=== PATIENT | female | born 1980 | race Caucasian/White ===

== ENCOUNTER → 2018-04-14 14:52 | Outpatient (CLI) | payer MEDICAID, SELFPAY ==
--- NOTE | 2018-04-14 14:55 | BI_ITS ---
MAMMOGRAPHY - BILATERAL SCREENING REASON FOR EXAM: Female, 38 years old. Routine annual screening examination. PERTINENT HISTORY: Non-contributory. TECHNIQUE: Digital bilateral breast cynthia (3D mammographic acquisition) in the CC and MLO projections. 2-D mediolateral oblique (MLO) and craniocaudad (CC) views of both breasts were obtained. CAD: Full Field Digital Mammography with Computer Added Detection was performed. COMPARISON: Comparison is made with prior outside examination dated November 30, 2013. FINDINGS: Breast Composition: There are scattered areas of fibroglandular density. There are no dominant masses or suspicious calcifications. No other significant abnormalities are identified. There has been no significant change since the prior study. BI/SCREENING MAMM (CAD), BILAT IMPRESSION: Stable bilateral screening mammogram. Yearly follow-up mammogram recommended. (A) ASSESSMENT CATEGORY: BIRADS Category 1: Negative. A letter regarding these results will be sent to the patient by the facility within 30 days. Approximately 10% of breast cancers are not detected by mammography. A normal mammogram should not delay biopsy of a clinically suspicious abnormality. [id number] Electronically Signed: Lisandro Mackey MD at 12:56 EDT Tel [phone], Service support ,
== END ==
PROVIDERS: PCP Nurse Practitioner Family
DX: Z12.31 Encounter for screening mammogram for malignant neoplasm of breast (principal)
CPT/HCPCS: 77063; 77067

== ENCOUNTER → 2018-05-08 15:34 | Outpatient (CLI) | payer MEDICAID, SELFPAY ==
--- NOTE | 2018-05-08 15:38 | EKG12_ITS ---
Test Reason : CARDIAC ARRHYTHMIA Blood Pressure : / mmHG Vent. Rate : 075 BPM Atrial Rate : 075 BPM P-R Int : 154 ms QRS Dur : 088 ms QT Int : 392 ms P-R-T Axes : 044 -27 023 degrees QTc Int : 437 ms Normal sinus rhythm Minimal voltage criteria for LVH, may be normal variant Cannot rule out Anterior infarct , age undetermined Abnormal ECG Reconfirmed by COCO LEIJA, KELSEY ([id number]), manuscript editor MARIA R GREEN ([id number]) on 05/12/2018 2:02:04 PM Referred By: [facility] Confirmed By:KELSEY SEPULVEDA MD
== END ==
DX: I49.9 Cardiac arrhythmia, unspecified (principal)
CPT/HCPCS: 93005

== ENCOUNTER → 2018-06-17 06:51 | Outpatient (CLI) | payer MEDICAID, SELFPAY ==
--- NOTE | 2018-06-17 12:52 | STRESSREP ---
Stress Test Report Date: 06/17/2018 Procedure: Exercise tolerance test/imaging study Indications: Chest pain Consent: Per the patient Procedure: The patient exercised on a Anders protocol for 6 minutes completing Stage 2 achieving a peak heart rate of 169 bpm (93 % predicted maximal heart rate) with a peak blood pressure 220/80 mmHg and a peak MET capacity of 7 METs. The baseline ECG demonstrated normal sinus rhythm. The peak exercise ECG demonstrated no obvious ECG changes. There were no cardiac dysrhythmias pretest, during exercise, or recovery. The functional capacity was considered average. There was no complaint of chest discomfort during exercise or recovery. The examination was discontinued secondary to dyspnea. Impression: 1. Technically adequate (percent predicted maximal heart rate greater than 85%) exercise tolerance test 2. Peak exercise ECG with no obvious ECG changes 3. There were no cardiac dysrhythmias pretest, during exercise, or recovery. 4. Nuclear images pending Myocardial perfusion imaging study: Technique: The patient was injected with 14.8 mCi of technetium 99m Cardiolite and subsequently rest SPECT Cardiolite nuclear imaging was obtained in the horizontal long, vertical long, and short axis views. The patient exercised on a Anders protocol for 6 minutes completing Stage 2 achieving a peak heart rate of 169 bpm (93 % predicted maximal heart rate) with a peak blood pressure 220/80 mmHg and a peak MET capacity of 7 METs. The patient was injected with 45 mCi of technetium 99m Cardiolite and subsequently stress SPECT Cardiolite nuclear imaging was obtained in the horizontal long, vertical long, and short axis views. A gated Cardiolite study at peak stress was obtained. Interpretation: Rest and stress SPECT Cardiolite nuclear imaging status post realignment and normalization demonstrates the appearance of relative uniform tracer uptake and myocardial perfusion appearing within normal limits. There is end systolic thickening and brightening. The gated Cardiolite study demonstrates myocardial thickening and inward wall motion. The reported LVEF is 63 %. Impression: 1. Rest and stress SPECT Cardiolite nuclear imaging demonstrate relative uniform tracer uptake and myocardial perfusion appearing within normal limits. 2. The gated Cardiolite study reports an LVEF of 63 %. This note was generated with [employer] It [employer] software. It may contain incorrect words, spelling, and punctuation that were not noted in checking the note before signing.
== END ==
PROVIDERS: Visit Provider Nurse Practitioner Family
DX: R07.89 Other chest pain (principal); I10 Essential (primary) hypertension; E78.5 Hyperlipidemia, unspecified; E66.9 Obesity, unspecified
CPT/HCPCS: 78452; 93017; A9500; A4216

== ENCOUNTER → 2018-06-23 17:25 | Outpatient (CLI) | payer MEDICAID, SELFPAY | PROVIDERS: Visit Provider Nurse Practitioner Family | DX: R94.31 Abnormal electrocardiogram [ECG] [EKG] (principal) | CPT/HCPCS: 71260; Q9967 ==

== ENCOUNTER → 2018-07-14 13:59 | Outpatient (CLI) | payer MEDICAID, SELFPAY ==
--- NOTE | 2018-07-14 14:01 | ECHOD_ITS ---
Reason For Study: Abnormal EKG Procedure This was a 2D Doppler, Color Flow transthoracic echocardiogram. Exam performed in department. Left Ventricle Normal LV size. Left ventricular systolic function is normal. The estimated ejection fraction is 60 %. No evidence for diastolic dysfunction. No regional wall motion abnormalities noted. Right Ventricle Normal RV size. Normal systolic function. Atria Normal left atrium. The right atrium is mildly enlarged. Mitral Valve Normal mitral valve. Tricuspid Valve Normal tricuspid valve. Mild (1+) tricuspid valve insufficiency. Pulmonary artery systolic pressure is 40 mmHg. Aortic Valve Normal aortic valve. Pulmonic Valve Normal pulmonic valve. Great Vessels Normal aortic root. The pulmonary artery is normal size. Normal inferior vena cava. Pericardium/Pleural No pericardial effusion. MMode/2D Measurements & Calculations LVIDd: 5.7 cm IVSd: 0.97 cm Ao root diam: 3.5 cm LVIDs: 3.9 cm LVPWd: 1.1 cm LA dimension: 3.9 cm RVDd: 4.4 cm FS: 31.6 % LAV(MOD-bp): 49.2 ml LA A4 area: 19.6 cm2 RA A4 area: 23.9 cm2 LAV(MOD-bp) Indexed: 18.4 ml/m2 LAV(MOD-sp2): 47.5 ml LAV(MOD-sp4): 52.8 ml Time Measurements MV dec time: 0.20 sec Doppler Measurements & Calculations MV E max david: 100.9 cm/sec Lat Peak E' David: 20.5 cm/sec Med Peak E' David: 11.4 cm/sec MV A max david: 85.4 cm/sec E/E' lat: 4.9 E/E' med: 8.8 MV E/A: 1.2 MV V2 max: 110.7 cm/sec MV P1/2t max david: 110.7 cm/sec Ao V2 max: 144.2 cm/sec MV max P.9 mmHg MV P1/2t: 89.0 msec Ao max P.3 mmHg MV V2 mean: 61.9 cm/sec MV dec slope: 364.4 cm/sec2 Ao V2 mean: 90.3 cm/sec MV mean P.8 mmHg MVA(P1/2t): 2.5 cm2 Ao mean P.8 mmHg MV V2 VTI: 33.5 cm Ao V2 VTI: 28.5 cm LV V1 max: 121.2 cm/sec PA V2 max: 95.3 cm/sec TR max david: 299.1 cm/sec LV V1 max P.9 mmHg TR max P.8 mmHg LV V1 mean P.7 mmHg LV V1 mean: 74.4 cm/sec LV V1 VTI: 26.6 cm Interpretation Summary Normal LV size. Left ventricular systolic function is normal. The estimated ejection fraction is 60 %. No evidence for diastolic dysfunction. The right atrium is mildly enlarged. Mild (1+) tricuspid valve insufficiency. Pulmonary artery systolic pressure is 40 mmHg. Ordering Physician: Jocelyn Ireland Referring Physician: [facility] Performed By: Pino Arroyo RCS
== END ==
PROVIDERS: Visit Provider Nurse Practitioner Family
DX: R94.31 Abnormal electrocardiogram [ECG] [EKG] (principal)
CPT/HCPCS: 93306

== ENCOUNTER → 2018-08-14 12:29 | Outpatient (CLI) | payer MEDICAID, SELFPAY ==
[2018-08-14 13:57] LABS: Rheumatoid Factor < 10.0 IU/mL (<15)
[2018-08-15 16:21] LABS: ANTINUCLEAR ANTIBODIES DIRECT Negative (Negative)
[2018-08-16 04:09] LABS: Cytoplasmic Ab (C-ANCA) <1:20 titer (Neg:<1:20)
[2018-08-16 08:30] LABS: CCP IgG Antibodies 10 units (0-19); Perinuclear Ab (P-ANCA) <1:20 titer (Neg:<1:20)
== END ==
PROVIDERS: Referring Provider Internal Medicine Critical Care Medicine; Visit Provider Internal Medicine Critical Care Medicine
DX: I27.20 Pulmonary hypertension, unspecified (principal)
CPT/HCPCS: 36415; 86038; 86200; 86225; 86235; 86256; 86431

== ENCOUNTER → 2018-08-18 10:53 | Outpatient (CLI) | payer MEDICAID, SELFPAY ==
[2018-08-18 11:17] VITALS: PULSE 108; PULSE 109; PULSE 111; PULSE 115; PULSE 82; PULSE 85; O2SAT 94; O2SAT 95; O2SAT 96; O2SAT 98
--- NOTE | 2018-08-18 16:03 | PCM.PSN.6M ---
PSN 6 Minute Walk Test - 6 Minute Walk Test 6 Minute Walk Test: 6 Minute Walk Test PSN:6-Minute Walk Test Start: 08/18/18 11:16 Freq: Status: Active Protocol: [id number].[id number] Document 08/18/18 11:17 SMB (Rec: 08/18/18 11:19 SMB [id number]) 6 Minute Walk Test Date Performed 08/18/18 Time Performed 11:05 Height 5 ft 10 in Weight: 163.293 kg Weight in Pounds 360.[address]: Mark Woodson Assistive device used: None Pre-test Oxygen Delivery Method Room Air Pulse Ox (%) 98 Pulse Rate (60-100 beats/min) 82 Dyspnea Mariel Scale (0-10) 0.5 Exertion Mariel Scale (6-20) 11 1st minute Oxygen Delivery Method Room Air Pulse Ox (%) 94 Pulse Rate (60-100 beats/min) 111 H 2nd minute Oxygen Delivery Method Room Air Pulse Ox (%) 95 Pulse Rate (60-100 beats/min) 111 H 3rd minute Oxygen Delivery Method Room Air Pulse Ox (%) 94 Pulse Rate (60-100 beats/min) 109 H 4th minute Oxygen Delivery Method Room Air Pulse Ox (%) 96 Pulse Rate (60-100 beats/min) 108 H 5th minute Oxygen Delivery Method Room Air Pulse Ox (%) 94 Pulse Rate (60-100 beats/min) 115 H 6th minute Oxygen Delivery Method Room Air Pulse Ox (%) 96 Pulse Rate (60-100 beats/min) 109 H Post-test Oxygen Delivery Method Room Air Pulse Ox (%) 98 Pulse Rate (60-100 beats/min) 85 Dyspnea Mariel Scale (0-10) 2 Exertion Mariel Scale (6-20) 14 Full Laps Walked 24 Partial Lap, Number of Tiles Walked 30 Total Distance Walked (ft) 1446 - Interpretation Interpretation: The patient was able to ambulate 1446 feet over the course of 6 minutes on room air with no assistive devices or breaks. The patient did experience significant desaturation from a resting value of 98%, to as low as 94% with ambulation. Patient's peak heart rate was noted at 115 bpm. These findings are consistent with deconditioning. - Recommendations Recommendations: No supplemental oxygen is indicated at this time.
== END ==
PROVIDERS: Referring Provider Internal Medicine Critical Care Medicine; Visit Provider Internal Medicine Critical Care Medicine
DX: I27.20 Pulmonary hypertension, unspecified (principal)
CPT/HCPCS: 94618

== ENCOUNTER → 2018-09-05 20:17 | Outpatient (CLI) | payer MEDICAID, SELFPAY | PROVIDERS: PCP Nurse Practitioner Family; Visit Provider Internal Medicine Critical Care Medicine | DX: G47.10 Hypersomnia, unspecified (principal) | CPT/HCPCS: 95810 ==

== ENCOUNTER → 2018-10-17 22:29 | Outpatient (CLI) | payer MEDICAID, SELFPAY ==
[2018-09-25 09:56] VITALS: BMI 52.4
== END ==
PROVIDERS: Referring Provider Nurse Practitioner Family; Visit Provider Nurse Practitioner Acute Care
DX: G47.33 Obstructive sleep apnea (adult) (pediatric) (principal)
CPT/HCPCS: 95811

== ENCOUNTER → 2019-07-27 10:49 | Outpatient (CLI) | payer MEDICAID, SELFPAY ==
[2019-03-24 09:18] VITALS: BMI 54.1
--- NOTE | 2019-07-27 10:51 | BI_ITS ---
MAMMOGRAPHY - BILATERAL SCREENING REASON FOR EXAM: Female, 39 years old. Routine annual screening examination. PERTINENT HISTORY: Aunt with breast cancer. TECHNIQUE: Digital bilateral breast tray (3D mammographic acquisition) in the CC and MLO projections. 2-D mediolateral oblique (MLO) and craniocaudad (CC) views of both breasts were obtained. CAD: Full Field Digital Mammography with Computer Added Detection was performed. COMPARISON: Comparison is made with prior study dated April 14, 2018. FINDINGS: Breast Composition: There are scattered areas of fibroglandular density. There are no dominant masses or suspicious calcifications. Small benign-appearing bilateral axillary lymph nodes. No other significant abnormalities are identified. There has been no significant change since the prior study. BI/SCREEN MAMM (CAD) W/TRAY BILAT IMPRESSION: Stable bilateral screening mammogram. Yearly follow-up mammogram recommended. (A) ASSESSMENT CATEGORY: BIRADS Category 2: Benign. A letter regarding these results will be sent to the patient by the facility within 30 days. Approximately 10% of breast cancers are not detected by mammography. A normal mammogram should not delay biopsy of a clinically suspicious abnormality. [id number] Electronically Signed: Lisandro Mackey, at 13:00 EDT , Service support ,
== END ==
DX: Z12.31 Encounter for screening mammogram for malignant neoplasm of breast (principal); Z80.3 Family history of malignant neoplasm of breast
CPT/HCPCS: 77063; 77067

== ENCOUNTER → 2020-01-01 16:35 | Outpatient (CLI) | payer OTHER, SELFPAY ==
[2020-01-01 16:37] VITALS: BMI 50.1
[2020-01-01 17:18] LABS: Absolute Lymphocyte Count 2.61 X10^3/uL (0.83-4.51); Absolute Neutrophil Count 4.8 X10^3/uL (2.0-7.7); Basophil# 0.04 X10^3/uL; Basophil% 0.5 % (0-1); Eosinophil# 0.07 X10^3/uL; Eosinophils% 0.9 % (0-5); Hematocrit 43.2 % (37-47); Lymphocyte # 2.61 X10^3/ul (4.0); Lymphocyte % 32.1 % (19-41); Mean Corp Hgb Conc 32.4 g/dL (32-36); Mean Corpuscular Hgb 29.5 pg (27.0-32.0); Mean Corpuscular Volume 91.1 fL (81-99); Mean Platelet Vol. 9.4 fl (6.2-12.0); Monocyte# 0.58 X10^3/uL; Monocyte% 7.1 % (0-10); NRBC Flagged by Analyzer 0 % (0-5); Neutrophil # 4.82 X10^3/uL (2.7-7.7); Neutrophil % 59.2 % (47-70); Platelet Count 389 K/mm3 (150-450); RBC Distribution Width CV 13.7 % (11.6-14.6); RBC Distribution Width SD 46.5 fl (35.1-43.9); Red Blood Count 4.74 M/mm3 (4.2-5.4); White Blood Count 8.1 K/mm3 (4.4-11.0)
[2020-01-01 17:44] LABS: ALB/GLOB Ratio 0.9 RATIO (0.9-2.4); AST(SGOT) 22 U/L (15-37); Alanine Aminotransfer ALT/SGPT 28 U/L (13-56); Albumin, Serum 3.6 g/dL (3.2-5.0); Alkaline Phosphatase 76 U/L (45-117); Anion Gap 6 (5-15); BUN 8 mg/dL (7-18); BUN/Creat Ratio 11.9 RATIO (10-20); Calcium,Total 8.9 mg/dL (8.5-10.1); Chloride 108 mmol/L (98-107); Creatinine, Serum 0.67 mg/dL (0.55-1.02); EST Glomerular Filtration Rate 102 mL/min (>60); Est Glom Filt Rate - Afr Amer 124 mL/min (>60); Glucose 100 mg/dL (74-106); Potassium 3.8 mmol/L (3.5-5.1); Protein, Total 7.6 g/dL (6.4-8.2); Sodium Level 139 mmol/L (136-145)
[2020-01-04 09:18] LABS: HIV - WCH Non-Reactive (Nonreactive); Hepatitis B Surface Antibody Non-Reactive; Hepatitis C Antibody Non-Reactive (Nonreactive)
== END ==
PROVIDERS: Referring Provider Physician Assistant Surgical; Visit Provider Physician Assistant Surgical
DX: T14.90XA Injury, unspecified, initial encounter (principal); W46.1XXA Contact with contaminated hypodermic needle, initial encounter; Y99.0 Civilian activity done for income or pay
CPT/HCPCS: 36415; 80053; 85025; 86703; 86706; 86803

== ENCOUNTER → 2020-06-13 | Outpatient (CLI) | payer MEDICAID, SELFPAY ==
[2020-04-18 09:54] VITALS: BMI 51.2
[2020-06-13 17:30] LABS: Prothrombin Time (Protime)PT. 12.8 SECONDS (11.7-14.9)
[2020-06-13 17:31] LABS: Partial Thromboplast Time 24.3 Seconds (24.1-36.2)
[2020-06-13 17:38] LABS: D-Dimer Quantitative (DVT/PE) 1.33 FEU/ug/m (0.27-0.49)
== END | disposition home or self-care (01) ==
LOC: LAB 17:09
PROVIDERS: Visit Provider Nurse Practitioner Family
DX: M79.661 Pain in right lower leg (principal); Z86.718 Personal history of other venous thrombosis and embolism
CPT/HCPCS: 36415; 85379; 85610; 85730

== ENCOUNTER → 2020-06-14 10:55 | Outpatient (CLI) | payer MEDICAID, SELFPAY ==
[2020-04-18 09:54] VITALS: BMI 51.2
--- NOTE | 2020-06-14 10:59 | VDLE_ITS ---
Reason For Study: Pain right leg RIGHT CFV is compressible, spontaneous, phasic, competent and demonstrates normal augmentation. FV is compressible, spontaneous, phasic, competent and demonstrates normal augmentation. POP V is compressible, spontaneous, phasic, competent and demonstrates normal augmentation. T/P Trunk is compressible. PTV is compressible. RT PerV is compressible. Acute superficial vein thrombosis is noted in the right GSV from knee-prox calf. Thrombus filled varicose veins noted in the knee and prox calf. Procedure Exam performed in department. A preliminary report was called and/or faxed to [facility]. Interpretation Summary Deep veins of the right lower extremity are patent and compressible segmentally. There is no evidence of right lower extremity deep vein thrombosis. Valvular competence appears intact within the proximal deep venous system on the right . Acute superficial thrombophlebitis is noted in the right great saphenous vein from the knee to the proximal calf. Acute superficial thrombophlebitis is noted in superficial varicosities near the right knee and proximal calf. Ordering Physician: Jocelyn Chacko Performed By: Naty Ann RVT and Student
== END ==
DX: M79.661 Pain in right lower leg (principal)
CPT/HCPCS: 93971

== ENCOUNTER → 2020-08-10 10:43 | Outpatient (CLI) | payer MEDICAID, SELFPAY ==
[2020-07-02 08:41] VITALS: BMI 50.1
--- NOTE | 2020-08-10 10:50 | BI_ITS ---
MAMMOGRAPHY - BILATERAL SCREENING REASON FOR EXAM: Female, 40 years old. Routine annual screening examination. PERTINENT HISTORY: Aunt with breast cancer. TECHNIQUE: Digital bilateral breast tray (3D mammographic acquisition) in the CC and MLO projections. 2-D mediolateral oblique (MLO) and craniocaudad (CC) views of both breasts were obtained. CAD: Full Field Digital Mammography with Computer Added Detection was performed. COMPARISON: Comparison is made with prior study dated 07/27/2019 and 04/14/2018. FINDINGS: Breast Composition: There are scattered areas of fibroglandular density. There are no dominant masses or suspicious calcifications. Stable small benign-appearing bilateral axillary lymph nodes. No other significant abnormalities are identified. There has been no significant change since the prior study. BI/SCREEN MAMM (CAD) W/TRAY BILAT IMPRESSION: Stable bilateral screening mammogram. Yearly follow-up mammogram recommended. (A) ASSESSMENT CATEGORY: BIRADS Category 2: Benign. A letter regarding these results will be sent to the patient by the facility within 30 days. Approximately 10% of breast cancers are not detected by mammography. A normal mammogram should not delay biopsy of a clinically suspicious abnormality. [id number] Electronically Signed: Lisandro Mackey, at 12:47 EDT , Service support ,
[2020-08-10 11:10] LABS: Absolute Lymphocyte Count 2.95 X10^3/uL (0.83-4.51); Absolute Neutrophil Count 4.2 X10^3/uL (2.0-7.7); Basophil# 0.04 X10^3/uL; Basophil% 0.5 % (0-1); Eosinophil# 0.15 X10^3/uL; Eosinophils% 1.9 % (0-5); Hematocrit 40.9 % (37-47); Hemoglobin 12.9 g/dL (12.0-15.0); Lymphocyte # 2.95 X10^3/ul (4.0); Lymphocyte % 36.9 % (19-41); Mean Corp Hgb Conc 31.5 g/dL (32-36); Mean Corpuscular Hgb 28.9 pg (27.0-32.0); Mean Corpuscular Volume 91.7 fL (81-99); Mean Platelet Vol. 9.1 fl (6.2-12.0); Monocyte# 0.62 X10^3/uL; Monocyte% 7.8 % (0-10); NRBC Flagged by Analyzer 0 % (0-5); Neutrophil # 4.21 X10^3/uL (2.7-7.7); Neutrophil % 52.5 % (47-70); Platelet Count 343 K/mm3 (150-450); RBC Distribution Width CV 13.8 % (11.6-14.6); RBC Distribution Width SD 46.9 fl (35.1-43.9); Red Blood Count 4.46 M/mm3 (4.2-5.4)
[2020-08-10 11:40] LABS: Hemoglobin A1c 6.4 % (3.8-5.6)
[2020-08-10 11:51] LABS: Vitamin D,25 Hydroxy 41.5 ng/mL
[2020-08-10 12:00] LABS: ALB/GLOB Ratio 0.7 RATIO (0.9-2.4); AST(SGOT) 17 U/L (15-37); Alanine Aminotransfer ALT/SGPT 25 U/L (13-56); Albumin, Serum 3.2 g/dL (3.2-5.0); Alkaline Phosphatase 78 U/L (45-117); Anion Gap 4 (5-15); BUN 11 mg/dL (7-18); BUN/Creat Ratio 15.4 RATIO (10-20); Calcium,Total 8.5 mg/dL (8.5-10.1); Chloride 104 mmol/L (98-107); Cholesterol 181 mg/dL (200); Creatinine, Serum 0.71 mg/dL (0.55-1.02); EST Glomerular Filtration Rate 95 mL/min (>60); Est Glom Filt Rate - Afr Amer 115 mL/min (>60); Globulin 4.3 g/dL (2.2-4.2); Glucose 121 mg/dL (74-106); High Density Lipoprotein 76 mg/dL; Potassium 3.6 mmol/L (3.5-5.1); Protein, Total 7.5 g/dL (6.4-8.2); Sodium Level 137 mmol/L (136-145); T4 Free Direct 1.16 ng/dL (0.76-1.46); Thyroid Stim Hormone (TSH) 2.15 uIU/mL (0.358-3.74); Triglycerides 117 mg/dL; Very Low Density Lipoprotein 23 mg/dL (5-40)
== END ==
DX: Z12.31 Encounter for screening mammogram for malignant neoplasm of breast (principal); I10 Essential (primary) hypertension; R73.03 Prediabetes; E55.9 Vitamin D deficiency, unspecified; E03.9 Hypothyroidism, unspecified; E78.2 Mixed hyperlipidemia
CPT/HCPCS: 36415; 77063; 77067; 80053; 80061; 82306; 83036; 84439; 84443; 85025

== ENCOUNTER → 2020-08-15 09:48 | Outpatient (CLI) | payer MEDICAID, SELFPAY ==
[2020-07-02 08:41] VITALS: BMI 50.1
--- NOTE | 2020-08-15 09:50 | VDLE_ITS ---
Reason For Study: Varicose veins RIGHT LEFT CFV is compressible, spontaneous, phasic, CFV is compressible, spontaneous, phasic, competent and demonstrates normal competent, and demonstrates normal augmentation. augmentation. FV is compressible, spontaneous, phasic, FV is compressible, spontaneous, phasic, competent and demonstrates normal competent and demonstrates normal augmentation. augmentation. POP V is compressible, spontaneous, phasic, POP V is compressible, spontaneous, phasic, competent and demonstrates normal competent and demonstrates normal augmentation. augmentation. T/P Trunk is compressible. T/P Trunk is compressible. PTV is compressible. PTV is compressible. RT PerV is compressible. LT PerV is compressible. SFJ is competent and measures 0.68 x 1.00 cm. SFJ is competent and measures 1.11 x 0.83 cm. GSV proximal thigh measures 0.53 cm. GSV proximal thigh measures 0.56 x 0.50 cm. GSV at knee measures 0.39 x 0.46 cm. GSV above knee is competent. GSV INCOMPETENT throughout for greater than GSV at knee measures 0.33 x 0.32 cm. 0.5 seconds. GSV below knee is INCOMPETENT for greater ASV mid calf is INCOMPETENT for greater than than 0.5 seconds. 0.5 seconds and measures 0.33 x 0.36 cm. ASV proximal calf is INCOMPETENT for greater SSV at junction is INCOMPETENT for greater than 0.5 seconds and measures 0.21 x 0.24 cm. than 0.5 seconds and measures 0.73 x 0.73 cm. SSV at junction is INCOMPETENT for greater ASV prox calf from SSV is INCOMPETENT for than 0.5 seconds and measures 0.69 x 0.75 cm. 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 medial malleolus. Vein of Giacomini is INCOMPETENT for greater ASV prox calf from SSV is INCOMPETENT for than 0.5 seconds and measures 0.58 x 0.59 cm. greater than 0.5 seconds and measures 0.50 x Procedure 0.52 cm. This is a venous duplex using B-mode, color Vein of Giacomini is INCOMPETENT for greater flow and spectral Doppler. than 0.5 seconds and measures 0.86 x 0.87 cm. Exam performed in department. A preliminary report was called and/or faxed to [facility]. Interpretation Summary Bilateral no DVT. Right GSV 5.3mm and relux. Bilaterall calf ASV and left calf GSV reflux. Bilateral large LSV junction and bilat vein o G reflux and 5.9 and 8.7mm. Ordering Physician: Darshan Solitario Referring Physician: [facility] Performed By: Naty Ann RVT
== END ==
PROVIDERS: Referring Provider Surgery Vascular Surgery; Visit Provider Surgery Vascular Surgery
DX: I83.892 Varicose veins of left lower extremity with other complications (principal); I83.891 Varicose veins of right lower extremity with other complications
CPT/HCPCS: 93970

== ENCOUNTER → 2020-11-21 09:40 | Outpatient (CLI) | payer BC, MEDICAID, SELFPAY ==
[2020-09-20 11:18] VITALS: BMI 52.8
--- NOTE | 2020-11-21 09:43 | VDLE_ITS ---
Reason For Study: Varicose veins RIGHT LEFT CFV is compressible, spontaneous, phasic, CFV is compressible, spontaneous, phasic, competent and demonstrates normal competent, and demonstrates normal augmentation. augmentation. FV is compressible, spontaneous, phasic, FV is compressible, spontaneous, phasic, competent and demonstrates normal competent and demonstrates normal augmentation. augmentation. POP V is compressible, spontaneous, phasic, POP V is compressible, spontaneous, phasic, competent and demonstrates normal competent and demonstrates normal augmentation. augmentation. T/P Trunk is compressible. T/P Trunk is compressible. PTV is compressible. PTV is compressible. RT PerV is compressible. LT PerV is compressible. GSV prox thigh is occluded s/p EVLA. SFJ is competent and measures 1.23 x 1.20 cm. Remaining GSV is compressible. GSV proximal thigh measures 0.51 x 0.47 cm. GSV below prox thigh is INCOMPETENT for GSV above knee is competent. greater than 0.5 second. GSV at knee measures 0.30 x 0.32 cm. SSV is occluded s/p EVLA. GSV below knee is INCOMPETENT for greater ASV prox calf from SSV is INCOMPETENT for than 0.5 seconds. greater than 0.5 seconds and measures 0.86 x ASV proximal calf is INCOMPETENT for greater 0.88 cm. than 0.5 seconds and measures 0.31 x 0.31 cm. Vein of Giacomini is INCOMPETENT for greater SSV is occluded s/p EVLA. than 0.5 seconds and measures 0.58 x 0.60 cm. ASV prox calf from SSV is INCOMPETENT for ASV mid calf is INCOMPETENT for greater than greater than 0.5 seconds and measures 0.40 x 0.5 seconds and measures 0.35 x 0.42 cm. 0.38 cm. Procedure Vein of Giacomini is occluded s/p EVLA. This is a venous duplex using B-mode, color flow and spectral Doppler. Exam performed in department. Interpretation Summary Bilateral no DVT. Right GSV and LSV oclcuded s/p ablation. Left LSv occluded s/p ablation. Residual branches bilateral claf and bilateral GSV in calf with reflux. Ordering Physician: Darshan Solitario Referring Physician: [facility] Performed By: Naty Ann RVT
== END ==
PROVIDERS: Referring Provider Surgery Vascular Surgery; Visit Provider Surgery Vascular Surgery
DX: I47.1 Supraventricular tachycardia (principal); I10 Essential (primary) hypertension; E07.9 Disorder of thyroid, unspecified; E78.70 Disorder of bile acid and cholesterol metabolism, unspecified; K21.9 Gastro-esophageal reflux disease without esophagitis; F32.9 Major depressive disorder, single episode, unspecified; M19.90 Unspecified osteoarthritis, unspecified site; I83.893 Varicose veins of bilateral lower extremities with other complications; Z86.718 Personal history of other venous thrombosis and embolism
CPT/HCPCS: 93970

== ENCOUNTER → 2020-12-26 09:52 | Outpatient (CLI) | payer BC, MEDICAID, SELFPAY ==
[2020-09-20 11:18] VITALS: BMI 52.8
[2020-12-09 11:42] VITALS: BMI 53.2
--- NOTE | 2020-12-26 09:53 | VDLE_ITS ---
Reason For Study: Varicose veins RIGHT LEFT CFV is compressible, spontaneous, phasic, CFV is compressible, spontaneous, phasic, competent and demonstrates normal competent, and demonstrates normal augmentation. augmentation. FV is compressible, spontaneous, phasic, FV is compressible, spontaneous, phasic, competent and demonstrates normal competent and demonstrates normal augmentation. augmentation. POP V is compressible, spontaneous, phasic, POP V is compressible, spontaneous, phasic, competent and demonstrates normal competent and demonstrates normal augmentation. augmentation. T/P Trunk is compressible. T/P Trunk is compressible. PTV is compressible. PTV is compressible. RT PerV is compressible. LT PerV is compressible. GSV prox thigh is occluded s/p EVLA. SFJ is competent and measures 1.08 x 1.03 cm. Remaining GSV is compressible. GSV below prox thigh is INCOMPETENT for GSV proximal thigh measures 0.49 x 0.50 cm. greater than 0.5 second. GSV above knee is competent. SSV is occluded s/p EVLA. GSV at knee measures 0.32 x 0.38 cm. ASV prox calf from SSV is INCOMPETENT for GSV below knee is INCOMPETENT for greater greater than 0.5 seconds and measures 0.63 x than 0.5 seconds. 0.63 cm. ASV proximal calf is INCOMPETENT for greater Vein of Giacomini is INCOMPETENT for greater than 0.5 seconds and measures 0.29 x 0.31 cm. than 0.5 seconds and measures 0.69 x 0.71 cm. ASV mid calf is INCOMPETENT for greater than SSV is occluded s/p EVLA. 0.5 seconds and measures 0.41 x 0.43 cm. ASV prox calf from SSV is INCOMPETENT for Procedure greater than 0.5 seconds and measures 0.48 x This is a venous duplex using B-mode, color 0.60 cm. flow and spectral Doppler. Vein of Giacomini is partially compressible. Exam performed in department. Vein is INCOMPETENT and measures 0.61 x 0.67 A preliminary report was called and/or faxed cm. to [facility]. 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 Interpretation Summary No DVT. Right gsv occluded form ablation and bilateral LSV occluded from ablation. Right vein of G with reflux and reflux noted in calf veins of gsv and asv. Left vein of G partially occluded. Reflux noted in calf gsv and asv. Ordering Physician: Darshan Solitario [facility]erring Physician[facility] Performed By: Naty Ann RVT
== END ==
PROVIDERS: Referring Provider Surgery Vascular Surgery; Visit Provider Surgery Vascular Surgery
DX: I83.893 Varicose veins of bilateral lower extremities with other complications (principal); I47.1 Supraventricular tachycardia; I10 Essential (primary) hypertension; E07.9 Disorder of thyroid, unspecified; E78.00 Pure hypercholesterolemia, unspecified; K21.9 Gastro-esophageal reflux disease without esophagitis; F32.9 Major depressive disorder, single episode, unspecified; M19.90 Unspecified osteoarthritis, unspecified site; Z86.718 Personal history of other venous thrombosis and embolism
CPT/HCPCS: 93970

== ENCOUNTER → 2021-04-03 13:15 | Outpatient (CLI) | payer BC, MEDICAID, SELFPAY ==
[2020-12-09 11:42] VITALS: BMI 53.2
--- NOTE | 2021-04-03 13:19 | VDLE_ITS ---
Reason For Study: embolism and thromosis of superfiscial veins RIGHT LEFT CFV is compressible, spontaneous, phasic, GSV is normal. competent and demonstrates normal CFV is compressible, spontaneous, phasic, augmentation. competent, and demonstrates normal FV is compressible, spontaneous, phasic, augmentation. competent and demonstrates normal FV is compressible, spontaneous, phasic, augmentation. competent and demonstrates normal POP V is compressible, spontaneous, phasic, augmentation. competent and demonstrates normal POP V is compressible, spontaneous, phasic, augmentation. competent and demonstrates normal T/P Trunk is compressible. augmentation. PTV is compressible. T/P Trunk is compressible. RT PerV is compressible. PTV is compressible. GSV and SSV are occluded S/P EVLA. LT PerV is compressible. Procedure SSV is occluded S/P EVLA. This is a venous duplex using B-mode, color flow and spectral Doppler. Exam performed in department. The study was technically difficult. A preliminary report was called and/or faxed to DR. Solitario @ 2:10 pm @ [phone]. VL/Venous Duplex US - Chad Extrem Interpretation Summary No DVT noted bilaterally. The right greater and lesser saphenous occluded statu s post ablation. Left lesser saphenous occluded status post ablation. Ordering Physician: Dariela Mosquera Referring Physician: [facility] Performed By: Sandie Magana, DARREL, RVT
== END ==
PROVIDERS: Referring Provider Nurse Practitioner Adult Health; Visit Provider Nurse Practitioner Adult Health
DX: I82.811 Embolism and thrombosis of superficial veins of right lower extremity (principal)
CPT/HCPCS: 93970

== ENCOUNTER → 2021-08-14 15:32 | Outpatient (CLI) | payer BC, MEDICAID, SELFPAY ==
--- NOTE | 2021-08-14 15:34 | BI_ITS ---
MAMMOGRAPHY - BILATERAL SCREENING REASON FOR EXAM: Female, 41 years old. Routine annual screening examination. PERTINENT HISTORY: Non-contributory. TECHNIQUE: Digital bilateral breast tray (3D mammographic acquisition) in the CC and MLO projections. 2-D mediolateral oblique (MLO) and craniocaudad (CC) views of both breasts were obtained. CAD: Full Field Digital Mammography with Computer Added Detection was performed. COMPARISON: Comparison is made with prior study dated 08/10/2020 and 07/27/2019. FINDINGS: Breast Composition: There are scattered areas of fibroglandular density. There are no dominant masses or suspicious calcifications. No other significant abnormalities are identified. There has been no significant change since the prior study. BI/SCRN MAMM (CAD)W/TRAY BILAT IMPRESSION: Stable bilateral screening mammogram. Yearly follow-up mammogram recommended. (A) ASSESSMENT CATEGORY: BIRADS Category 1: Negative. A letter regarding these results will be sent to the patient by the facility within 30 days. Approximately 10% of breast cancers are not detected by mammography. A normal mammogram should not delay biopsy of a clinically suspicious abnormality. [id number] Electronically Signed: Lisandro Makcey MD at 8:45 EDT , Service support ,
== END ==
PROVIDERS: Referring Provider Nurse Practitioner Adult Health; Visit Provider Nurse Practitioner Adult Health
DX: Z12.31 Encounter for screening mammogram for malignant neoplasm of breast (principal)
CPT/HCPCS: 77063; 77067

== ENCOUNTER → 2022-02-20 | Outpatient (CLI) | payer BC, MEDICAID, SELFPAY ==
[2022-02-20 10:09] LABS: Absolute Lymphocyte Count 3.82 X10^3/uL (0.83-4.51); Absolute Neutrophil Count 4.9 X10^3/uL (2.0-7.7); Basophil# 0.05 X10^3/uL; Basophil% 0.5 % (0-1); Eosinophil# 0.18 X10^3/uL; Eosinophils% 1.9 % (0-5); Hematocrit 39.5 % (37-47); Hemoglobin 13.1 g/dL (12.0-15.0); Lymphocyte # 3.82 X10^3/ul (0.83-4.51); Lymphocyte % 39.6 % (19-41); Mean Corp Hgb Conc 33.2 g/dL (32-36); Mean Corpuscular Volume 87.6 fL (81-99); Mean Platelet Vol. 9.7 fl (6.2-12.0); Monocyte# 0.69 X10^3/uL; Monocyte% 7.2 % (0-10); NRBC Flagged by Analyzer 0 % (0-5); Neutrophil # 4.86 X10^3/uL (2.7-7.7); Neutrophil % 50.4 % (47-70); Platelet Count 337 K/mm3 (150-450); RBC Distribution Width CV 14.5 % (11.6-14.6); Red Blood Count 4.51 M/mm3 (4.2-5.4); White Blood Count 9.6 K/mm3 (4.4-11.0)
[2022-02-20 10:42] LABS: Vitamin D,25 Hydroxy 47.3 ng/mL
[2022-02-20 10:49] LABS: ALB/GLOB Ratio 0.8 RATIO (0.9-2.4); AST(SGOT) 18 U/L (15-37); Alanine Aminotransfer ALT/SGPT 30 U/L (13-56); Albumin, Serum 3.2 g/dL (3.2-5.0); Alkaline Phosphatase 76 U/L (45-117); Anion Gap 4 (5-15); BUN 11 mg/dL (7-18); BUN/Creat Ratio 17.2 RATIO (10-20); Calcium,Total 8.7 mg/dL (8.5-10.1); Chloride 103 mmol/L (98-107); Cholesterol 199 mg/dL (200); Creatinine, Serum 0.64 mg/dL (0.55-1.02); EST Glomerular Filtration Rate 107 mL/min (>60); Est Glom Filt Rate - Afr Amer 130 mL/min (>60); Globulin 3.9 g/dL (2.2-4.2); Glucose 143 mg/dL (74-106); High Density Lipoprotein 78 mg/dL; Potassium 3.9 mmol/L (3.5-5.1); Protein, Total 7.1 g/dL (6.4-8.2); Sodium Level 135 mmol/L (136-145); Thyroid Stim Hormone (TSH) 1.19 uIU/mL (0.358-3.74); Triglycerides 109 mg/dL; Very Low Density Lipoprotein 22 mg/dL (5-40)
[2022-02-20 10:57] LABS: Microalbumin,Random Urine < 5.0 mg/L (NO RANGE EST.)
[2022-02-23 18:07] LABS: Vitamin D 1,25-Dihydroxy 55.1 pg/mL (19.9-79.3)
== END | disposition home or self-care (01) ==
LOC: LAB 09:25
PROVIDERS: Referring Provider Nurse Practitioner Adult Health; Visit Provider Nurse Practitioner Adult Health
DX: E11.9 Type 2 diabetes mellitus without complications (principal)
CPT/HCPCS: 36415; 80053; 80061; 82043; 82306; 82570; 82652; 84443; 85025

== ENCOUNTER → 2022-08-16 | Outpatient (CLI) | payer BC, MEDICAID, SELFPAY ==
--- NOTE | 2022-08-16 10:03 | BI_ITS ---
MAMMOGRAPHY - BILATERAL SCREENING 3-D TOMOSYNTHESIS REASON FOR EXAM: Female, 42 years old. Routine screening PERTINENT HISTORY: Aunt with breast cancer.. TECHNIQUE: 2-D mammograms and 3-D Tomosynthesis of the breast (s) were performed. CAD was performed. COMPARISON: None. FINDINGS: The breast composition is composed of scattered fibroglandular density. Scattered benign calcifications are seen. No dense spiculated masses or suspicious microcalcifications are identified. No architectural distortion is identified. There is no skin thickening or retraction. There has been no significant change since the prior study. BI/SCRN MAMM (CAD)W/TRAY BILAT IMPRESSION: No mammographic signs of malignancy. Routine yearly mammograms recommended. ASSESSMENT CATEGORY: BIRADS Category 1: Negative. A letter regarding these results will be sent to the patient by the facility within 30 days. FOLLOW UP RECOMMENDATION: Yearly follow up mammogram recommended. (A) Approximately 10% of breast cancers are not detected by mammography. A normal mammogram should not delay biopsy of a clinically suspicious abnormality. Electronically Signed: Bobby Arrington MD at 10:57 EDT ,
== END | disposition home or self-care (01) ==
LOC: OPBI 10:01
PROVIDERS: Visit Provider Family Medicine
DX: Z12.31 Encounter for screening mammogram for malignant neoplasm of breast (principal); Z80.3 Family history of malignant neoplasm of breast
CPT/HCPCS: 77063; 77067

== ENCOUNTER → 2023-03-14 | Outpatient (CLI) | payer BC, MEDICAID, SELFPAY ==
[2023-03-14 10:54] LABS: Hematocrit 42.3 % (37-47); Hemoglobin 13.2 g/dL (12.0-15.0); Mean Corp Hgb Conc 31.2 g/dL (32-36); Mean Corpuscular Hgb 29.1 pg (27.0-32.0); Mean Corpuscular Volume 93.4 fL (81-99); Platelet Count 373 K/mm3 (150-450); RBC Distribution Width CV 13.9 % (11.6-14.6); RBC Distribution Width SD 47.8 fl (35.1-43.9); Red Blood Count 4.53 M/mm3 (4.2-5.4); White Blood Count 8.7 K/mm3 (4.4-11.0)
[2023-03-14 11:33] LABS: Microalbumin,Random Urine 28.6 mg/L (NO RANGE EST.)
[2023-03-14 11:35] LABS: ALB/GLOB Ratio 0.7 RATIO (0.9-2.4); AST(SGOT) 31 U/L (15-37); Alanine Aminotransfer ALT/SGPT 43 U/L (13-56); Albumin, Serum 3.1 g/dL (3.2-5.0); Alkaline Phosphatase 78 U/L (45-117); Anion Gap 8 (5-15); BUN 9 mg/dL (7-18); BUN/Creat Ratio 13.3 RATIO (10-20); Calcium,Total 8.6 mg/dL (8.5-10.1); Chloride 102 mmol/L (98-107); Cholesterol 245 mg/dL (200); Creatinine, Serum 0.68 mg/dL (0.55-1.02); EST Glomerular Filtration Rate 100 mL/min (>60); Est Glom Filt Rate - Afr Amer 121 mL/min (>60); Globulin 4.2 g/dL (2.2-4.2); Glucose 194 mg/dL (74-106); High Density Lipoprotein 61 mg/dL; Potassium 3.8 mmol/L (3.5-5.1); Protein, Total 7.3 g/dL (6.4-8.2); Sodium Level 135 mmol/L (136-145); T4 Free Direct 1.15 ng/dL (0.76-1.46); Thyroid Stim Hormone (TSH) 3.06 uIU/mL (0.358-3.74); Triglycerides 211 mg/dL; Very Low Density Lipoprotein 42 mg/dL (5-40)
[2023-03-14 11:38] LABS: Hemoglobin A1c 8.9 % (3.8-5.6)
== END | disposition home or self-care (01) ==
LOC: LAB 09:38
PROVIDERS: Referring Provider Nurse Practitioner Family; Visit Provider Nurse Practitioner Family
DX: E11.9 Type 2 diabetes mellitus without complications (principal); E66.01 Morbid (severe) obesity due to excess calories; E03.9 Hypothyroidism, unspecified
CPT/HCPCS: 36415; 80053; 80061; 82043; 83036; 84439; 84443; 85027

== ENCOUNTER 2023-07-29 06:52 | Day surgery (SDC) | payer BC, MEDICAID, SELFPAY ==
[2023-07-29 07:21] LABS: Internal QC Validated? YES +Cl - CLEAR BKGD; Pregnancy, Urine Negative Negative; Record Kit Lot#,Urine Preg HCG0000667200
[2023-07-29 07:22] VITALS: BP 164/74; PULSE 55; RESP 18; TEMP 36.6; O2SAT 99; BMI 52.5
[2023-07-29] MEDS: Lactated Ringers 1,000 ML 15 ML IV (07:49)
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
--- NOTE | 2023-07-29 08:00 | COLBX_PTH ---
PATIENT: ROBBY JI LOC: EN U#:[id number] AGE/SX: 43/F ROOM: RE07/29/[address]: Dr. Autumn Cano MD : 1980 BED: DIS: 07/29/2023 SPEC #: [id number] RECD: 07/29/23 10:42 STATUS: PRANEETH KENNETH #: [id number] EMILY: 07/29/23 08:[address]: Autumn Cano DEPT: SURGICAL PATHOLOGY RECD BY: Solo Helton ENTERED: 07/29/23 14:01 SP TYPE: COLON BX OTHR DR: Tianna [facility] Tissues: A - Gastric mucous membrane B - Gastric mucous membrane Procedures: Special Stain Group II Surgery Specimen Level IV Alcian Blue/PAS (control) HEADER OPERATION: Colonoscopy, EGD with biopsies PRE-OP DIAGNOSIS: Screening, GERD TISSUE SUBMITTED: A - Antrum biopsy for H. pylori and path, B - Gastroesophageal junction biopsy MICROSCOPIC DIAGNOSIS A. Gastric antrum, biopsy: Chronic gastritis. See comment. B. Gastroesophageal junction, biopsy: Focal changes of reflux. No evidence of goblet cell metaplasia. See comment. AM:eddie 07/30/2023 COMMENT A. The results of immunohistochemistry for Helicobacter pylori will be reported separately ([id number]). B. Alcian blue/PAS stain with matched control supports the above diagnosis. MICROSCOPIC DESCRIPTION Slides are reviewed. GROSS DESCRIPTION A - Received in fixative is one container labeled with the patient's name and designated antrum biopsy. The specimen consists of one irregular fragment of light aguirre soft tissue that measures 0.4 x 0.2 x 0.1 cm. The specimen is totally submitted in one cassette. B - Received in fixative is one container labeled with the patient's name and designated GE junction biopsy. The specimen consists of two irregular fragments of light aguirre soft tissue that in aggregate measure 0.4 x 0.2 x 0.1 cm. The specimen is totally submitted in one cassette. / VIANCA:eddie 07/29/2023 TC:3 CPT: 01754 x2, 61349
--- NOTE | 2023-07-29 08:00 | IMM_PTH ---
PATIENT: ROBBY JI LOC: EN U#:[id number] AGE/SX: 43/F ROOM: RE07/29/[address]: Dr. Autumn Cano MD : 1980 BED: DIS: 07/29/2023 SPEC #: [id number] RECD: 07/29/23 14:49 STATUS: PRANEETH REGuido #: [id number] EMILY: 07/29/23 08:[address]: Autumn Cano DEPT: IMMUNOHISTOCHEMISTRY RECD BY: Migdalia Jhaveri ENTERED: 07/29/23 14:49 SP TYPE: IMMUNO OTHR DR: [facility] Tissues: A - Stomach, NOS Procedures: H Pylori (initial) PHYSICIAN & INSTITUTION [place] [id number] SPECIMEN INFORMATION: Tissue Source: A - Antrum Clinical Info: Screening, GERD Specimen Number: [id number] CPT code: 75057 METHODOLOGY: Deparaffinized sections of prefer/formalin-fixed tissue or PAP/DQ stained slides are incubated with monoclonal/polyclonal antibodies/oligonucleotide probes. Localization is made via biotin free immunoperoxidase method. Appropriate controls are performed and reacted as expected. Results on target cell population are indicated in the following table: RESULTS: ANTIBODY / CLONE RESULT Block A H Pylori (polyclonal) negative These tests were developed and their performance characteristics determined by [facility]. They may not have been cleared or approved by the U.S. Food and Drug Administration. The FDA has determined that such clearance or approval is not necessary. The above immunohistochemical/dualISH markers are ordered and reviewed by the Pathologist. INTERPRETATION: A. Antrum, biopsy: Negative for Helicobacter pylori organisms. AM:eddie 07/30/2023
[2023-07-29 08:08] LABS: Bedside Glucose 152 mg/dL (74-106)
[2023-07-29 08:35] VITALS: BP 128/75; BP 164/74; PULSE 72; RESP 18; TEMP 36.8; O2SAT 94
--- NOTE | 2023-07-29 08:36 | OP.EGD_ITS ---
Patient Name: Reyna Aranda Procedure Date: 07/29/2023 7:40 AM Date of : 1980 Age: 43 Procedure: Upper GI endoscopy Indications: Heartburn Providers: Autumn Cano MD Medicines: Monitored Anesthesia Care Patient Profile: This is a 43 year old female. Complications: No immediate complications. Procedure: Pre-Anesthesia Assessment: - Prior to the procedure, a History and Physical was performed, and patient medications and allergies were reviewed. The patient's tolerance of previous anesthesia was also reviewed. The risks and benefits of the procedure and the sedation options and risks were discussed with the patient. All questions were answered, and informed consent was obtained. Prior Anticoagulants: The patient has taken Eliquis (apixaban), last dose was 3 days prior to procedure. ASA Grade Assessment: Per anesthesia. After reviewing the risks and benefits, the patient was deemed in satisfactory condition to undergo the procedure. After obtaining informed consent, the endoscope was passed under direct vision. Throughout the procedure, the patient's blood pressure, pulse, and oxygen saturations were monitored continuously. The Colonoscope was introduced through the mouth, and advanced to the second part of duodenum. The upper GI endoscopy was accomplished without difficulty. The patient tolerated the procedure well. Scope In: 8:11:03 AM Scope Out: 8:16:06 AM Total Procedure Duration Time 0 hours 5 minutes 3 seconds Findings: The Z-line was irregular. Biopsies were taken with a cold forceps for histology. Mildly erythematous mucosa without bleeding was found in the gastric antrum. Biopsies were taken with a cold forceps for histology. Biopsies were taken with a cold forceps for Helicobacter pylori cultures. The examined duodenum was normal. The cardia and gastric fundus were normal on retroflexion. Impression: - Z-line irregular. Biopsied. - Erythematous mucosa in the antrum. Biopsied. - Normal examined duodenum. Recommendation: - Await pathology results. - Discharge patient to home. - Resume previous diet. - Continue present medications. - Resume Eliquis (apixaban) at prior dose tomorrow. Procedure Code(s): --- Professional --- 44003, Esophagogastroduodenoscopy, flexible, transoral; with biopsy, single or multiple Diagnosis Code(s): --- Professional --- K22.89, Other specified disease of esophagus K31.89, Other diseases of stomach and duodenum R12, Heartburn CPT copyright 2021 [employer]. All rights reserved. The codes documented in this report are preliminary and upon aemt review may be revised to meet current compliance requirements. MD Autumn Sethi MD 07/29/2023 8:35:46 AM This report has been signed electronically. Number of Addenda: 0 Note Initiated On: 07/29/2023 7:40 AM
--- NOTE | 2023-07-29 08:37 | OP.CCLET_ITS ---
07/29/2023 Tianna Molina [facility] Re : Upper GI endoscopy procedure for Reyna Swartz [facility] This procedure was performed on Saturday, July 29, 2023. My impressions and recommendations are as follows: Impressions : - Z-line irregular. Biopsied. - Erythematous mucosa in the antrum. Biopsied. - Normal examined duodenum. Recommendations : - Await pathology results. - Discharge patient to home. - Resume previous diet. - Continue present medications. - Resume Eliquis (apixaban) at prior dose tomorrow. My findings are described in the full procedure note, which is enclosed. If I can be of further assistance, please feel free to contact me at Doctor phone number(s): , Work: . Sincerely, MD Autumn Sethi MD 07/29/2023 8:35:46 AM This report has been signed electronically.
--- NOTE | 2023-07-29 08:38 | OP.COLON_ITS ---
Patient Name: Reyna Aranda Procedure Date: 07/29/2023 8:16 AM Date of : 1980 Age: 43 Procedure: Colonoscopy Indications: Screening for colorectal malignant neoplasm Providers: Autumn Cano MD Medicines: Monitored Anesthesia Care Patient Profile: This is a 43 year old female. Last Colonoscopy: more than 10 years ago. Complications: No immediate complications. Procedure: Pre-Anesthesia Assessment: - Prior to the procedure, a History and Physical was performed, and patient medications and allergies were reviewed. The patient's tolerance of previous anesthesia was also reviewed. The risks and benefits of the procedure and the sedation options and risks were discussed with the patient. All questions were answered, and informed consent was obtained. Prior Anticoagulants: The patient has taken Eliquis (apixaban), last dose was 3 days prior to procedure. ASA Grade Assessment: Per anesthesia. After reviewing the risks and benefits, the patient was deemed in satisfactory condition to undergo the procedure. After I obtained informed consent, the scope was passed under direct vision. Throughout the procedure, the patient's blood pressure, pulse, and oxygen saturations were monitored continuously. The Colonoscope was introduced through the anus and advanced to the cecum, identified by the appendiceal orifice, ileocecal valve and palpation. The colonoscopy was performed without difficulty. The patient tolerated the procedure well. The quality of the bowel preparation was good. Scope In: 8:17:43 AM Scope Withdrawal Time 0 hours 8 minutes 57 seconds Scope Out: 8:29:58 AM Total Procedure Duration Time 0 hours 12 minutes 15 seconds Findings: Hemorrhoids were found on perianal exam. Non-bleeding internal hemorrhoids were found. The hemorrhoids were Grade I (internal hemorrhoids that do not prolapse). The entire examined colon appeared normal. Impression: - Hemorrhoids found on perianal exam. - Non-bleeding internal hemorrhoids. - The entire examined colon is normal. - No specimens collected. Recommendation: - Discharge patient to home. - Resume previous diet. - Continue present medications. - Repeat colonoscopy in 10 years for screening purposes. Procedure Code(s): --- Professional --- G0121, PT, Colorectal cancer screening; colonoscopy on individual not meeting criteria for high risk Diagnosis Code(s): --- Professional --- Z12.11, Encounter for screening for malignant neoplasm of colon K64.0, First degree hemorrhoids CPT copyright 2021 [employer]. All rights reserved. The codes documented in this report are preliminary and upon commercial drafter review may be revised to meet current compliance requirements. MD Autumn Sethi MD 07/29/2023 8:38:07 AM This report has been signed electronically. Number of Addenda: 0 Note Initiated On: 07/29/2023 8:16 AM
--- NOTE | 2023-07-29 08:38 | OP.CCLET_ITS ---
07/29/2023 Tianna Molina [facility] Re : Colonoscopy procedure for Reyna Swartz [facility] This procedure was performed on Saturday, July 29, 2023. My impressions and recommendations are as follows: Impressions : - Hemorrhoids found on perianal exam. - Non-bleeding internal hemorrhoids. - The entire examined colon is normal. - No specimens collected. Recommendations : - Discharge patient to home. - Resume previous diet. - Continue present medications. - Repeat colonoscopy in 10 years for screening purposes. My findings are described in the full procedure note, which is enclosed. If I can be of further assistance, please feel free to contact me at Doctor phone number(s): , Work: . Sincerely, MD Autumn Sethi MD 07/29/2023 8:38:07 AM This report has been signed electronically.
[2023-07-29 08:40] VITALS: BP 122/108; BP 164/74; PULSE 58; RESP 18; O2SAT 94
[2023-07-29 08:45] VITALS: BP 121/69; BP 164/74; PULSE 64; RESP 18; O2SAT 95
[2023-07-29 08:49] VITALS: BP 121/62; BP 164/74; PULSE 59; RESP 18; TEMP 36.3; O2SAT 95
[2023-07-29 08:59] VITALS: BP 164/74
== END 2023-07-29 09:25 | disposition home or self-care (01) ==
LOC: EN 06:56 → AC 06:57
PROVIDERS: Anesthesiology; Visit Provider Surgery
PROC: 0DJD8ZZ Inspection of Lower Intestinal Tract, Via Natural or Artificial Opening Endoscopic (ICD-10-PCS; CPT 45378; principal; 2023-07-29 07:55)
DX: Z12.11 Encounter for screening for malignant neoplasm of colon (principal); E66.01 Morbid (severe) obesity due to excess calories; Z68.43 Body mass index [BMI] 50.0-59.9, adult; D68.51 Activated protein C resistance; E11.9 Type 2 diabetes mellitus without complications; K29.50 Unspecified chronic gastritis without bleeding; K21.9 Gastro-esophageal reflux disease without esophagitis; K64.0 First degree hemorrhoids; I10 Essential (primary) hypertension; K76.0 Fatty (change of) liver, not elsewhere classified; E03.9 Hypothyroidism, unspecified; F32.A Depression, unspecified; E55.9 Vitamin D deficiency, unspecified; K31.89 Other diseases of stomach and duodenum; Z79.899 Other long term (current) drug therapy; Z79.84 Long term (current) use of oral hypoglycemic drugs; Z79.01 Long term (current) use of anticoagulants; Z80.0 Family history of malignant neoplasm of digestive organs; Z86.718 Personal history of other venous thrombosis and embolism
CPT/HCPCS: 45378; 43239; 81025; 82962; 88305; 88313; 88342; J7120; J2405

== ENCOUNTER → 2023-08-22 | Outpatient (CLI) | payer BC, MEDICAID, SELFPAY ==
--- NOTE | 2023-08-22 08:00 | BI_ITS ---
MAMMOGRAPHY - BILATERAL SCREENING REASON FOR EXAM: Female, 43 years old. Routine annual screening examination. PERTINENT HISTORY: Non-contributory. TECHNIQUE: Digital bilateral breast tray (3D mammographic acquisition) in the CC and MLO projections. 2-D mediolateral oblique (MLO) and craniocaudad (CC) views of both breasts were obtained. CAD: Full Field Digital Mammography with Computer Added Detection was performed. COMPARISON: Comparison is made with prior study dated August 16, 2022 and August 14, 2021. FINDINGS: Breast Composition: There are scattered areas of fibroglandular density. There are no dominant masses or suspicious calcifications. No other significant abnormalities are identified. There has been no significant change since the prior study. BI/SCRN MAMM (CAD)W/TRAY BILAT IMPRESSION: Stable bilateral screening mammogram. Yearly follow-up mammogram recommended. (A) ASSESSMENT CATEGORY: BIRADS Category 1: Negative. A letter regarding these results will be sent to the patient by the facility within 30 days. Approximately 10% of breast cancers are not detected by mammography. A normal mammogram should not delay biopsy of a clinically suspicious abnormality. [id number] Electronically Signed: Lisandro Mackey MD at 8:59 EDT ,
== END | disposition home or self-care (01) ==
PROVIDERS: Visit Provider Nurse Practitioner Family
DX: Z12.31 Encounter for screening mammogram for malignant neoplasm of breast (principal)
CPT/HCPCS: 77063; 77067

== ENCOUNTER → 2024-02-21 | Outpatient (CLI) | payer OTHER, SELFPAY ==
[2024-02-21 09:37] LABS: Hematocrit 41.6 % (37-47); Mean Corp Hgb Conc 31.3 g/dL (32-36); Mean Corpuscular Hgb 28.4 pg (27.0-32.0); Mean Platelet Vol. 9.6 fl (6.2-12.0); Platelet Count 393 K/mm3 (150-450); RBC Distribution Width CV 14.3 % (11.6-14.6); RBC Distribution Width SD 47.7 fl (35.1-43.9); Red Blood Count 4.57 M/mm3 (4.2-5.4); White Blood Count 10.8 K/mm3 (4.4-11.0)
[2024-02-21 10:16] LABS: ALB/GLOB Ratio 0.8 RATIO (0.9-2.4); AST(SGOT) 20 U/L (15-37); Alanine Aminotransfer ALT/SGPT 41 U/L (13-56); Albumin, Serum 3.3 g/dL (3.2-5.0); Alkaline Phosphatase 79 U/L (45-117); Anion Gap 5 (5-15); BUN 15 mg/dL (7-18); BUN/Creat Ratio 21.4 RATIO (10-20); Calcium,Total 9.1 mg/dL (8.5-10.1); Chloride 102 mmol/L (98-107); EST Glomerular Filtration Rate 96 mL/min (>60); Est Glom Filt Rate - Afr Amer 116 mL/min (>60); Globulin 4.1 g/dL (2.2-4.2); Glucose 227 mg/dL (74-106); Potassium 4.1 mmol/L (3.5-5.1); Protein, Total 7.4 g/dL (6.4-8.2); Sodium Level 133 mmol/L (136-145); T4 Free Direct 1.13 ng/dL (0.76-1.46); Thyroid Stim Hormone (TSH) 2.82 uIU/mL (0.358-3.74)
[2024-02-21 14:21] LABS: Microalbumin,Random Urine 22.4 mg/L (NO RANGE EST.)
== END | disposition home or self-care (01) ==
LOC: LAB 08:41
PROVIDERS: PCP Nurse Practitioner Family; Referring Provider Nurse Practitioner Family; Visit Provider Nurse Practitioner Family
DX: E11.9 Type 2 diabetes mellitus without complications (principal); E03.9 Hypothyroidism, unspecified
CPT/HCPCS: 36415; 80053; 82043; 82570; 84439; 84443; 85027

== ENCOUNTER → 2024-08-26 | Outpatient (CLI) | payer MEDICAID, SELFPAY ==
[2024-08-26 13:15] LABS: Absolute Lymphocyte Count 3.43 X10^3/uL (0.83-4.51); Absolute Neutrophil Count 4.5 X10^3/uL (2.0-7.7); Basophil# 0.07 X10^3/uL; Basophil% 0.8 % (0-1); Eosinophil# 0.24 X10^3/uL; Eosinophils% 2.7 % (0-5); Hematocrit 42.4 % (37-47); Hemoglobin 13.7 g/dL (12.0-15.0); Lymphocyte # 3.43 X10^3/ul (0.83-4.51); Lymphocyte % 38.4 % (19-41); Mean Corp Hgb Conc 32.3 g/dL (32-36); Mean Corpuscular Hgb 30.2 pg (27.0-32.0); Mean Corpuscular Volume 93.6 fL (81-99); Mean Platelet Vol. 9.1 fl (6.2-12.0); Monocyte# 0.66 X10^3/uL; Monocyte% 7.4 % (0-10); NRBC Flagged by Analyzer 0 % (0-5); Neutrophil % 50.4 % (47-70); Platelet Count 464 K/mm3 (150-450); RBC Distribution Width CV 13.7 % (11.6-14.6); Red Blood Count 4.53 M/mm3 (4.2-5.4); White Blood Count 8.9 K/mm3 (4.4-11.0)
[2024-08-26 13:40] LABS: Microalbumin,Random Urine 21.4 mg/L (NO RANGE EST.)
[2024-08-26 13:42] LABS: ALB/GLOB Ratio 0.8 RATIO (0.9-2.4); AST(SGOT) 25 U/L (15-37); Alanine Aminotransfer ALT/SGPT 47 U/L (13-56); Albumin, Serum 3.3 g/dL (3.2-5.0); Alkaline Phosphatase 74 U/L (45-117); Anion Gap 9 (5-15); BUN 14 mg/dL (7-18); BUN/Creat Ratio 18.7 RATIO (10-20); Chloride 104 mmol/L (98-107); Cholesterol 188 mg/dL (200); Creatinine, Serum 0.75 mg/dL (0.55-1.02); EST Glomerular Filtration Rate 88 mL/min (>60); Est Glom Filt Rate - Afr Amer 107 mL/min (>60); Globulin 4.1 g/dL (2.2-4.2); Glucose 134 mg/dL (74-106); High Density Lipoprotein 68 mg/dL; Potassium 4.2 mmol/L (3.5-5.1); Protein, Total 7.4 g/dL (6.4-8.2); Sodium Level 137 mmol/L (136-145); Triglycerides 157 mg/dL; Very Low Density Lipoprotein 31 mg/dL (5-40)
[2024-08-26 14:16] LABS: Vitamin D,25 Hydroxy 61.6 ng/mL
== END | disposition home or self-care (01) ==
LOC: VSLAB 08:47
PROVIDERS: PCP Nurse Practitioner Family; Visit Provider Nurse Practitioner Family
DX: E11.9 Type 2 diabetes mellitus without complications (principal); I10 Essential (primary) hypertension; E56.9 Vitamin deficiency, unspecified
CPT/HCPCS: 36415; 80053; 80061; 82043; 82306; 84443; 85025

== ENCOUNTER 2024-09-09 16:18 | Outpatient (CLI) | payer MEDICAID, SELFPAY ==
[2024-09-09 17:46] LABS: HIV - WCH Non-Reactive (Nonreactive); Syphilis Antibodies Non-reactive
[2024-09-11 07:09] LABS: HEPATITIS B SURFACE AG Negative (Negative); Hep B Surface Antibodies Non Reactive (.); Hepatitis B Core Ab Total Negative (Negative); Hepatitis C Ab Non Reactive (Non Reactive)
[2024-09-17 17:07] LABS: HPV APTIMA, High Risk Negative (Negative)
[2024-09-17 19:14] LABS: HPV Reflexed? YES, CHARGE PATIENT
== END 2024-09-09 23:59 | disposition home or self-care (01) ==
PROVIDERS: PCP Nurse Practitioner Family; Visit Provider Nurse Practitioner Family
DX: Z01.419 Encounter for gynecological examination (general) (routine) without abnormal findings (principal); Z11.3 Encounter for screening for infections with a predominantly sexual mode of transmission
CPT/HCPCS: 36415; 86703; 86704; 86705; 86706; 86707; 86780; 86803; 87340; 87350; 87624; 88175; G0145

== ENCOUNTER → 2024-09-16 | Outpatient (CLI) | payer MEDICAID, SELFPAY ==
--- NOTE | 2024-09-16 13:05 | BI_ITS ---
MAMMOGRAPHY - BILATERAL SCREENING REASON FOR EXAM: Female, 44 years old. Routine annual screening examination. PERTINENT HISTORY: Non-contributory. TECHNIQUE: Digital bilateral breast tray (3D mammographic acquisition) in the CC and MLO projections. 2-D mediolateral oblique (MLO) and craniocaudad (CC) views of both breasts were obtained. CAD: Full Field Digital Mammography with Computer Added Detection was performed. COMPARISON: Comparison is made with prior study August 22, 2023 and August 16, 2022. FINDINGS: Breast Composition: There are scattered areas of fibroglandular density. There are no dominant masses or suspicious calcifications. Stable 6.8 mm low-density nodule with peripheral calcific rim in the anterior superior lateral periareolar region of the right breast including with a fatty cyst. No other significant abnormalities are identified. There has been no significant change since the prior study. BI/SCRN MAMM (CAD)W/TRAY BILAT IMPRESSION: Stable bilateral screening mammogram. Yearly follow-up mammogram recommended. (A) ASSESSMENT CATEGORY: BIRADS Category 2: Benign. A letter regarding these results will be sent to the patient by the facility within 30 days. Approximately 10% of breast cancers are not detected by mammography. A normal mammogram should not delay biopsy of a clinically suspicious abnormality. [id number] Electronically Signed: Lisandro Mackey MD at 13:36 EST ,
== END | disposition home or self-care (01) ==
LOC: OPBI 13:04
PROVIDERS: PCP Nurse Practitioner Family; Referring Provider Nurse Practitioner Family; Visit Provider Nurse Practitioner Family
DX: Z12.31 Encounter for screening mammogram for malignant neoplasm of breast (principal)
CPT/HCPCS: 77063; 77067

== ENCOUNTER → 2025-03-24 | Outpatient (CLI) | payer MEDICAID, SELFPAY ==
[2025-03-24 12:51] LABS: Absolute Lymphocyte Count 2.39 X10^3/uL (0.83-4.51); Absolute Neutrophil Count 2.8 X10^3/uL (2.0-7.7); Basophil# 0.05 X10^3/uL; Basophil% 0.9 % (0-1); Eosinophil# 0.15 X10^3/uL; Eosinophils% 2.6 % (0-5); Hematocrit 43.6 % (37-47); Hemoglobin 14.5 g/dL (12.0-15.0); Lymphocyte # 2.39 X10^3/ul (0.83-4.51); Lymphocyte % 40.7 % (19-41); Mean Corp Hgb Conc 33.3 g/dL (32-36); Mean Corpuscular Hgb 29.8 pg (27.0-32.0); Mean Corpuscular Volume 89.5 fL (81-99); Monocyte# 0.48 X10^3/uL; Monocyte% 8.2 % (0-10); NRBC Flagged by Analyzer 0 % (0-5); Neutrophil # 2.79 X10^3/uL (2.7-7.7); Neutrophil % 47.4 % (47-70); Platelet Count 386 K/mm3 (150-450); RBC Distribution Width CV 13.3 % (11.6-14.6); RBC Distribution Width SD 43.5 fl (35.1-43.9); Red Blood Count 4.87 M/mm3 (4.2-5.4); White Blood Count 5.9 K/mm3 (4.4-11.0)
[2025-03-24 13:39] LABS: Microalbumin,Random Urine < 12.0 mg/L (NO RANGE EST.)
[2025-03-24 13:44] LABS: ALB/GLOB Ratio 1.1 RATIO (0.9-2.4); AST(SGOT) 29 U/L (<=31); Alanine Aminotransfer ALT/SGPT 28 U/L (<=34); Alkaline Phosphatase 87 U/L (35-104); Anion Gap 13 (5-15); BUN 11 mg/dL (4-19); BUN/Creat Ratio 15.4 RATIO (10-20); Calcium,Total 9.7 mg/dL (7.6-11.0); Chloride 99 mmol/L (98-108); Creatinine, Serum 0.72 mg/dL (0.70-1.20); EST Glomerular Filtration Rate 104 (>60); Globulin 3.5 g/dL (2.2-4.2); Glucose 197 mg/dL (70-99); Potassium 4.5 mmol/L (3.3-5.1); Protein, Total 7.5 g/dL (5.9-8.4); Sodium Level 134 mmol/L (133-145); Vitamin B12 543 pg/mL (180-914)
== END | disposition home or self-care (01) ==
LOC: VSLAB 11:28
PROVIDERS: PCP Nurse Practitioner Family; Visit Provider Family Medicine
DX: E11.8 Type 2 diabetes mellitus with unspecified complications (principal); E03.9 Hypothyroidism, unspecified; I10 Essential (primary) hypertension
CPT/HCPCS: 36415; 80053; 82043; 82607; 84439; 84443; 85025

== ENCOUNTER → 2025-10-01 | Outpatient (CLI) | payer MEDICAID, SELFPAY ==
--- NOTE | 2025-10-01 15:02 | BI_ITS ---
EXAM: SCRN MAMM (CAD)W/TRAY BILAT DATE: 10/01/2025 CLINICAL HISTORY: F, Age 45 y/o , SCREENING TECHNIQUE: Procedure Code: [id number] Modality: MG Procedure: SCRN MAMM (CAD)W/TRAY BILAT COMPARISON: Prior exam(s) dated 09/16/2024, 08/22/2023, and 08/16/2022. FINDINGS: TISSUE DENSITY: The breasts are almost entirely fatty. Bilateral Breast Mammographic Findings: A benign-appearing macrocalcification is seen in the right breast. A 5 mm, well-circumscribed, isodense mass is seen in the superior outer, far posterior aspect of the left breast. Benign round microcalcifications are seen in the left breast. No suspicious masses, suspicious cluster of microcalcifications, architectural distortion or secondary signs of malignancy is identified in either breast. BI/SCRN MAMM (CAD)W/TRAY BILAT IMPRESSION: Benign screening mammogram OVERALL FINAL ASSESSMENT BI-RADS 2: BENIGN RECOMMENDATION: Routine annual follow-up in 1 Year Additional Recommendation none A letter with findings and recommendations will be mailed to the patient. Reading Location: [id number]
--- OUTSIDE RECORDS SUMMARY | 2025-10-01 15:22 | XMS RPT_ITS | CCD ---
Author Organization [facility] Care Team Providers Care Menhaden Vessel Pilot Name Role Phone Cuca Dan Unavailable Unavailable Dan Cuca Unavailable Unavailable Albino Zamora Unavailable Unavailable Cesia LEIJA, Sandra Alfredo Unavailable [facility], Clancy Amadougerardo Primary Care Pro vider [facility], Clancy Tracy Referring Provid er Dr. Gerson Alicia Attending Provider [facility], Clancy Tracy Primary Care Pro vider [facility], Clancy Tracy Referring Provid er Dr. Autumn Cano Attending Provider [phone] Dr. Autumn Cano Other Provider Ricki RUBBER DOWN-C, Gabbie Primary Care Provider Ricki RUBBER DOWN-C, Gabbie Referring Provider Vira RUBBER DOWN-CNallely Attending Provider Marilyn Shafer DO Attending Provider Ricki VSC, Gabbie Primary Care Unavailabl e Ricki VSC, Gabbie Attending Unavailabl e Ricki VSC, Gabbie Referring Unavailabl e Ricki VSC, Gabbie Primary Care Unavailabl e Soni JURADOCMarilyn Attending Unavailable Dorita Gardner Attending Unavailable Ricki VSC, Gabbie Primary Care Unavailabl e Ricki VSC, Gabbie Primary Care Unavailabl e Ricki VSC, Gabbie Referring Unavailabl e Nallely Constantino Attending Unavailable Allergies Allergy Classification Reported Allergen(s) Allergy Type Date of Onset Reaction(s) Facility (8 sources) penicillin drug allergy 12-20-2016 [facility] Work Phone: (8 sources) potassium drug allergy 12-20-2016 [facility] Work Phone: (7 sources) Penicillins; Translations: [Penicillins] Allergy to substance 10-02-2021 Hives [facility] Medications Current Medications Medication Drug Class(es) Dates Sig (Normalized) Sig (Original) apixaban 2.5 mg oral tablet (12 sources) Factor Xa Inhibitor Start: 12-09-2020 take 1 tablet by mouth once daily Apixaban (Eliquis) 2.5 mg tablet Active 2.5 mg PO DAILY December 09, 2020 12:43pm Start: 09-20-2020 End: 12-09-2020 take 1 tablet by mouth twice daily Apixaban (Eliquis) 2.5 mg tablet Discontinued 2.5 mg PO TWICE A DAY September 20, 2020 1:00am December 09, 2020 12:44pm ARIPiprazole 5 mg oral tablet (2 sources) Atypical Antipsychotic Start: 12-02-2024 take 1 tablet by mouth at bedtime Aripiprazole 5 mg tablet Active 5 mg PO AT BEDTIME December 02, 2024 1:00am Start: 08-31-2024 End: 12-02-2024 take 1 tablet by mouth once daily Aripiprazole 2 mg tablet Discontinued 2 mg PO daily August 31, 2024 1:00am December 02, 2024 4:06pm 24 hr buPROPion hydrochloride 150 mg extended release oral tablet (1 source) Aminoketone Start: 12-02-2024 take 1 tablet by mouth once daily Bupropion Hcl 150 mg tablet extended release 24 hr Active 150 mg PO DAILY December 02, 2024 1:00am cholecalciferol 0.125 mg oral capsule (11 sources) Vitamin D Start: 11-20-2017 take 1 capsule by mouth once daily Cholecalciferol (Vitamin D3) 5,000 unit capsule Active 5000 U PO daily November 20, 2017 1:00am Start: 12-27-2016 VITAMIN D3 500 0 UNIT TABS CHOLECALCIFEROL [id number] Alexandria Galan NP escitalopram 10 mg oral tablet (11 sources) Serotonin Reuptake Inhibitor Start: 06-25-2022 take 2 tablets by mouth once daily Escitalopram Oxalate (Lexapro) 10 mg tablet Active 20 mg PO DAILY June 25, 2022 11:02am Start: 09-22-2019 End: 06-25-2022 take 1 tablet by mouth once daily Escitalopram Oxalate (Lexapro) 10 mg tablet Discontinued 10 mg PO DAILY September 22, 2019 1:00am June 25, 2022 11:03am fluticasone propionate 0.05 mg/actuat metered dose nasal spray (20 sources) Corticosteroid Start: 11-13-2017 Fluticasone Pr opionate (Allergy Relief (Fluticasone)) 50 mcg/actuation spray,suspension Active 50 ug INTRANASAL daily as needed for allergy symptoms November 13, 2017 1:00am Start: 12-20-2016 FLUTICASONE PA OPIONATE 50 MCG/ACT SUSP (0.05mg/inh) 1 spray each nostril once a day FLUTICASONE PROPIONATE [id number] Ivis Shaffer RN Start: 12-30-2015 End: 11-13-2017 Fluticasone Propionate 1 SPR AY spray,suspension Discontinued 2 NMA NASAL NEEDED as needed for ALLERGRIES December 30, 2015 1:00am November 13, 2017 3:26pm Start: 12-30-2015 End: 11-13-2017 Fluticasone Propionate Disco ntinued 2 SPRAY NASAL NEEDED December 30, 2015 1:00am November 13, 2017 3:26pm glimepiride 2 mg oral tablet (4 sources) Sulfonylurea Start: 06-19-2023 take 1 tablet by mouth once daily Glimepiride 2 mg tablet Active 2 mg PO DAILY June 19, 2023 12:00am lisinopril 20 mg oral tablet (1 source) Angiotensin Converting Enzyme Inhibitor Start: 08-31-2024 take 1 tablet by mouth once daily Lisinopril 20 mg tablet Active 20 mg PO daily August 31, 2024 1:00am loratadine 10 mg oral tablet (14 sources) Start: 11-26-2015 take 1 tablet by mouth once daily Loratadine 10 MG tablet Active 10 mg PO DAILY November 26, 2015 1:00am metFORMIN hydrochloride 1000 mg oral tablet (15 sources) Biguanide Start: 06-19-2023 take 1 tablet by mouth at bedtime Metformin 1,000 mg tablet Active 1000 mg PO AT BEDTIME June 19, 2023 12:00am Start: 06-25-2022 End: 06-19-2023 Metformin 500 mg tablet Disc ontinued 750 mg PO DAILY June 25, 2022 11:03am June 19, 2023 1:10pm Start: 06-25-2022 End: 06-19-2023 take 750 mg by mouth once daily Metformin Discontinued 750 MG PO DAILY June 25, 2022 11:03am June 19, 2023 1:10pm Start: 06-19-2021 End: 06-25-2022 take 1 tablet by mouth once daily Metformin 500 mg tablet Discontinued 500 mg PO DAILY June 19, 2021 12:00am June 25, 2022 11:03am 24 hr metoprolol succinate 50 mg extended release oral tablet (20 sources) beta-Adrenergic Letitia Start: 07-24-2023 take 1 tablet by mouth every twenty-four hours at bedtime Metoprolol Succinate 50 mg tablet extended release 24 hr Active 50 mg PO AT BEDTIME July 24, 2023 12:00am Start: 06-03-2018 End: 07-24-2023 take 1 tablet by mouth once daily Metoprolol Succinate 50 mg tablet extended release 24 hr Discontinued 50 mg PO daily June 03, 2018 10:45am July 24, 2023 3:14pm Start: 05-30-2018 End: 06-03-2018 Metoprolol Succinate (Toprol Xl) 25 mg tablet extended release 24 hr Discontinued 50 mg PO daily May 30, 2018 1:08pm June 03, 2018 10:46am Start: 11-13-2017 End: 05-30-2018 take 1 tablet by mouth once daily Metoprolol Succinate (Toprol Xl) 25 mg tablet extended release 24 hr Discontinued 25 mg PO daily November 13, 2017 1:00am May 30, 2018 1:09pm Start: 12-20-2016 take 1 tablet by freya th once daily TOPROL XL 25 MG [id number] One tablet by mouth daily METOPROLOL SUCCINATE [id number] Gerson Alicia MD Start: 12-20-2016 take 1 tablet by freya th once daily TOPROL XL 25 MG [id number] One tablet by mouth daily METOPROLOL SUCCINATE [id number] Gerson Alicia MD Omeprazole 40 mg capsule,delayed release(DR/EC) (1 source) Start: 08-31-2024 take 1 capsule by mouth once daily Omeprazole 40 mg capsule,delayed release(DR/EC) Active 40 mg PO daily August 31, 2024 1:00am levothyroxine sodium 0.088 mg oral tablet (19 sources) l-Thyrox ine Start: 11-26-2015 take 1 tablet by mouth once daily Levothyroxine 88 MCG tablet Active 88 ug PO DAILY November 26, 2015 1:00am Completed/Discontinued Medications Medication Drug Class(es) Dates Sig (Normalized) Sig (Original) acetaminophen 325 mg / oxyCODONE hydrochloride 5 mg oral tablet (6 sources) Opioid Agonist Start: 01-04-2016 End: 11-20-2017 Oxycodone-Acetamino phen 1 TABLET tablet Discontinued 1 - 2 {tbl} PO EVERY 6 HOURS NEEDED as needed for Moderate-Severe Pain (4-10/10) January 04, 2016 1:00am November 20, 2017 11:59am Start: 01-04-2016 End: 11-20-2017 take 1 tablet by mouth every six hours as needed Oxycodone-Acetaminophen Discontinued 1 - 2 TABLET PO EVERY 6 HOURS NEEDED January 04, 2016 1:00am November 20, 2017 11:59am aspirin 325 mg oral tablet (20 sources) Nonsteroidal Anti-inflammatory Drug Start: 11-20-2017 End: 12-09-2020 take 1 tablet by mouth once daily Aspirin 325 mg tablet Discontinued 325 mg PO daily November 20, 2017 1:00am December 09, 2020 12:43pm Start: 11-13-2017 End: 11-20-2017 Aspirin (Adult Low Dose Aspi rin) 81 mg tablet,delayed release (DR/EC) Discontinued 81 mg PO daily November 13, 2017 1:00am November 20, 2017 11:55am Start: 12-27-2016 take 1 tablet by once daily ASPIRIN EC 81 MG TBEC One tablet by mouth daily ASPIRIN [id number] Gerson Alicia MD Dulaglutide (1 source) GLP-1 Receptor Agonist Start: 08-31-2024 End: 12-02-2024 Dulaglutide (Trulicity) 3 mg/0.5 mL pen injector Discontinued mg SC August 31, 2024 1:00am December 02, 2024 4:05pm ergocalciferol 35792 unt oral tablet (20 sources) Provitamin D2 Compound Start: 12-27-2016 take 1 tablet by mouth every week VITAMIN D (ERGOCALCIFEROL) 34494 UNIT CAPS One tablet by mouth weekly ERGOCALCIFEROL [id number] Gerson Alicia MD Start: 12-20-2016 End: 12-27-2016 take 1 tablet by mouth every week ERGOCALCIFEROL 52079 UNIT CAPS 1 tablet by mouth weekly ERGOCALCIFEROL [id number] Ivis Shaffer RN famotidine 20 mg oral tablet (20 sources) Histamine-2 Receptor Antagonist Start: 06-19-2021 End: 08-31-2024 take 2 tablets by mouth at bedtime Famotidine 20 mg tablet Discontinued 40 mg PO AT BEDTIME June 19, 2021 10:24am August 31, 2024 11:51am Start: 06-19-2021 take 40 mg by mouth at bedtime Famotidine Active 40 MG PO AT BEDTIME June 19, 2021 10:24am Start: 11-20-2017 End: 06-19-2021 take 1 tablet by mouth twice daily Famotidine 20 mg tablet Discontinued 20 mg PO TWICE A DAY November 20, 2017 12:00pm June 19, 2021 10:24am Start: 11-20-2017 End: 11-20-2017 take 1 tablet by mouth once daily Famotidine 20 mg tablet Discontinued 20 mg PO daily November 20, 2017 1:00am November 20, 2017 12:00pm Start: 12-20-2016 take 1 tablet by freya th twice daily FAMOTIDINE 40 MG TABS One tablet by mouth twice daily FAMOTIDINE [id number] Ivis Shaffer RN fish oil (8 sources) Start: 12-20-2016 take 1 tablet by freya th once daily FISH OIL CAPS One tablet by mouth daily OMEGA-3 FATTY ACIDS CAPS [id number] Ivis Shaffer RN Start: 12-20-2016 take 1 tablet by freya th once daily FISH OIL CAPS One tablet by mouth daily OMEGA-3 FATTY ACIDS CAPS [id number] Ivis Shaffer RN ibuprofen 800 mg oral tablet (14 sources) Nonsteroidal Anti-inflammatory Drug Start: 11-13-2017 End: 06-19-2023 take 1 tablet by mouth once daily as needed Ibuprofen 800 mg tablet Discontinued 800 mg PO daily as needed November 13, 2017 1:00am June 19, 2023 1:10pm Start: 12-20-2016 IBUPROFEN 800 MG TABS as needed IBUPROFEN [id number] Ivis Shaffer RN meloxicam 15 mg oral tablet (12 sources) Nonsteroidal Anti-inflammatory Drug Start: 03-09-2019 End: 12-09-2020 take 1 tablet by mouth once daily as needed Meloxicam 15 mg tablet Discontinued 15 mg PO DAILY as needed October 12, 2019 11:17am December 09, 2020 12:44pm Start: 03-09-2019 End: 10-12-2019 Meloxicam 15 mg tablet Disco ntinued PO March 09, 2019 12:00am October 12, 2019 11:17am Kiksv-Bvqbivn-Vqavjtzu Tablet (6 sources) Start: 11-26-2015 End: 08-14-2018 take 1 tablet by mouth once daily Zpyst-Cqsgkek-Khsizdvt Tablet Discontinued 1 TABLET PO DAILY November 26, 2015 12:11pm August 14, 2018 8:56am Start: 11-26-2015 End: 08-14-2018 Rfsae-Zhsewmh-Unaivtqd Table t Discontinued 1 {tbl} PO DAILY November 26, 2015 1:00am August 14, 2018 8:56am Start: 11-26-2015 End: 08-14-2018 take 1 tablet by mouth once daily Klizs-Pquwzfx-Xlrcvfqe Tablet Discontinued 1 TABLET PO DAILY November 26, 2015 1:00am August 14, 2018 8:56am MULTIPLE VITAMIN (8 sources) Start: 12-20-2016 take 1 tablet by freya th every twenty-four hours MULTIVITAMINS TABS One tablet by mouth daily MULTIPLE VITAMIN Ivis Shaffer RN Start: 12-20-2016 take 1 tablet by freya th every twenty-four hours MULTIVITAMINS TABS One tablet by mouth daily MULTIPLE VITAMIN Ivis Shaffer RN nystatin 100 unt/mg topical powder (11 sources) Polyene Antifungal Start: 11-13-2017 End: 08-14-2018 Nystatin (Nystop) 100,000 unit/gram powder Discontinued 1 NMA TOPICAL TWICE A DAY as needed November 13, 2017 1:00am August 14, 2018 8:56am Start: 11-13-2017 End: 08-14-2018 Nystatin (Nystop) 100,000 un it/gram powder Discontinued 1 APPLIC TOPICAL TWICE A DAY November 13, 2017 1:00am August 14, 2018 8:56am Start: 09-05-2017 NYSTOP [id number] UNIT/GM POWD apply to area twice daily or as needed NYSTATIN [id number] Alexandria Galan NP [place]-3 Fatty Acids (Fish Oil Concentrate) 1,000 mg capsule (6 sources) Start: 11-20-2017 End: 12-09-2020 take 1 capsule by mouth once daily [place]-3 Fatty Acids (Fish Oil Concentrate) 1,000 mg capsule Discontinued 1000 MG PO daily November 20, 2017 11:59am December 09, 2020 12:44pm Start: 11-20-2017 End: 12-09-2020 take 1 capsule by mouth once daily [place]-3 Fatty Acids (Fish Oil Concentrate) 1,000 mg capsule Discontinued 1000 mg PO daily November 20, 2017 1:00am December 09, 2020 12:44pm Start: 11-20-2017 End: 12-09-2020 take 1 capsule by mouth once daily [place]-3 Fatty Acids (Fish Oil Concentrate) 1,000 mg capsule Discontinued 1000 MG PO daily November 20, 2017 1:00am December 09, 2020 12:44pm omeprazole 20 mg delayed release oral capsule (6 sources) Proton Pump Inhibitor Start: 11-26-2015 End: 11-20-2017 take 1 capsule by mouth once daily Omeprazole 20 MG capsule Discontinued 20 mg PO DAILY November 26, 2015 1:00am November 20, 2017 11:57am oxyCODONE hydrochloride 5 mg oral tablet (12 sources) Opioid Agonist Start: 12-01-2015 End: 12-01-2015 take 1 tablet by mouth every four hours as needed for pain Oxycodone 5 MG tablet Discontinued 5 mg PO EVERY 4 HOURS NEEDED as needed for Moderate Pain (pain scale 4-5) December 01, 2015 1:00am December 01, 2015 10:54am Start: 12-01-2015 End: 01-04-2016 take 1 tablet by mouth every six hours as needed for pain Oxycodone 5 MG tablet Discontinued 5 mg PO EVERY 6 HOURS NEEDED as needed for Mod-Severe Pain (4-10/10) December 01, 2015 1:00am January 04, 2016 5:51pm promethazine hydrochloride 25 mg oral tablet (6 sources) Phenothiazine Start: 12-01-2015 End: 11-20-2017 take 1 tablet by mouth every four hours as needed for nausea Promethazine 25 MG tablet Discontinued 25 mg PO EVERY 4 HOURS NEEDED as needed for Nausea/Emesis December 01, 2015 1:00am November 20, 2017 11:59am Problems Active Problems Problem Classification Problem Date Documented Da te Episodic/Chronic Administrative/social admission (10 sources) Patient encounter status; Translations: [Encounter for pre-employment examination] 06-19-2022 Episodic Allergic reactions (6 sources) Environmental allergy; Translations: [Other allergy status, other than to drugs and biological substances] 11-20-2017 Episodic Cardiac dysrhythmias (7 sources) Ventricular premature beats; Translations: [Ventricular premature depolarization] Chronic Cardiac dysrhythmias (14 sources) Palpitations; Translations: [Palpitations] Onset: 7 12-20-2016 Episodic Coagulation and hemorrhagic disorders (7 sources) Factor V Leiden mutation; Translations: [Activated protein C resistance] Chronic Diabetes mellitus with complications (2 sources) Type 2 diabetes mellitus with unspecified complications; Translations: [Type 2 diabetes mellitus with unspecified complications] Onset: 5 Chronic Disorders of lipid metabolism (16 sources) Hyperlipidemia; Translations: [Mixed hyperlipidemia] Onset: 7 12-20-2016 Chronic E Codes: Cut/pierceb (6 sources) Contact with contaminated hypodermic needle, initial encounter; Translations: [Accidental needlestick injury with exposure to body fluid] 06-19-2022 Episodic Esophageal disorders (8 sources) Gastroesophageal reflux disease; Translations: [Gastro-esophageal reflux disease without esophagitis] 07-24-2023 Chronic Comment on above: FAIRLY CONTROLLED WI TH MED Essential hypertension (20 sources) Hypertensive disorder; Translations: [Essential hypertension] Onset: 7 12-20-2016 Chronic Comment on above: CONTROLLED WITH MED Malaise and fatigue (1 source) Other fatigue; Translations: [Other fatigue] Onset: 5 Episodic Nonspecific chest pain (6 sources) Chest pain; Translations: [Chest pain, unspecified] 03-09-2019 Episodic Nutritional deficiencies (1 source) Vitamin D deficiency, unspecified; Translations: [Vitamin D deficiency, unspecified] Onset: 5 Chronic Open wounds of extremities (6 sources) Puncture wound of ring finger of right hand; Translations: [Puncture wound without foreign body of right ring finger without damage to nail, initial encounter] 06-19-2022 Episodic Other aftercare (4 sources) Long-term current use of anticoagulant; Translations: [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] 06-20-2023 Episodic Other aftercare (4 sources) 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; Translations: [Long-term (current) use of anticoagulants] 06-19-2023 Episodic Other nutritional; endocrine; and metabolic disorders (8 sources) Body mass index (BMI) 50-59.9 , adult; Translations: [Body mass index (BMI) 50-59.9 , adult] Onset: 7 12-27-2016 Chronic Other nutritional; endocrine; and metabolic disorders (7 sources) Morbid obesity; Translations: [Morbid (severe) obesity due to excess calories] 11-20-2017 Chronic Pancreatic disorders (not diabetes) (6 sources) Acute pancreatitis; Translations: [Acute pancreatitis without necrosis or infection, unspecified] 03-09-2019 Episodic Phlebitis; thrombophlebitis and thromboembolism (20 sources) H/O: Deep vein thrombosis; Translations: [Deep venous thrombosis] Onset: 7 12-20-2016 Episodic Comment on above: ON ELIQUIS/LAST DOSE 07/25/23 Pulmonary heart disease (7 sources) Pulmonary hypertension; Translations: [Pulmonary hypertension, unspecified] Chronic Comment on above: RVSP 40 mmHg Residual codes; unclassified (7 sources) Obstructive sleep apnea syndrome; Translations: [Obstructive sleep apnea (adult) (pediatric)] 09-22-2019 Chronic Comment on above: BiPAP 15/[address] Sprains and strains (6 sources) Shoulder strain; Translations: [Strain of unspecified muscle, fascia and tendon at shoulder and upper arm level, right arm, initial encounter] 03-01-2020 Episodic Thyroid disorders (15 sources) Hypothyroidism; Translations: [Hypothyroidism, unspecified] Onset: 7 12-20-2016 Chronic Comment on above: ON MED Unclassified (5 sources) Screening for malignant neoplasm of cervix ; Translations: [Encounter for screening for malignant neoplasm of cervix] Onset: 7 09-05-2017 Unclassified (5 sources) Gynecologic examination ; Translations: [Encounter for gynecological examination (general) (routine) without abnormal findings] Onset: 7 09-05-2017 Past or Other Problems Problem Classification Problem Date Documented Date Episodic/Chronic Contraceptive and procreative management (5 sources) Encounter for sterilization; Translations: [Encounter for sterilization] Onset: 09-05-2017 09-05-2017 Episodic Immunizations and screening for infectious disease (5 sources) Encounter for screening for human papillomavirus (HPV); Translations: [Encounter for screening for human papillomavirus (HPV)] Onset: 09-05-2017 09-05-2017 Episodic Other screening for suspected conditions (not mental disorders or infectious disease) (5 sources) Encounter for screening for malignant neoplasm of colon; Translations: [Special screening for malignant neoplasms of colon] Onset: 10-13-2024 06-19-2023 Episodic Results Test Name Value Interpretation Reference Range Facility Absolute lymphocyte countOrd ered By: Marilyn Shafer on 03-24-2025 Lymphocytes Auto (Unsp spec) [#/Vol] 2.39 10*3/uL 0.83-4.51 [facility] Absolute neutrophil countOrd ered By: Marilyn Shafer on 03-24-2025 Neutrophils (Bld) [#/Vol] 2.8 10*3/uL 2.0-7.7 [facility] Anion gap in Serum or Plasma Ordered By: Marilyn Shafer on 03-24-2025 Anion gap [Moles/Vol] 13 mmol/L 5-15 [facility] Automated lymphocyte count a s percentage of total leukocytesOrdered By: Marilyn Shafer on 03-24-2025 Lymphocytes/100 WBC Auto (Unsp spec) 40.7 % - [facility] BUN/creatinine ratioOrdered By: Marilyn Shafer on 03-24-2025 Urea nitrogen/Creatinine [Mass ratio] 15.4 mg/mg 10-20 [facility] Basophil percentageOrdered B y: Marilyn Shafer on 03-24-2025 Basophils/100 WBC (Bld) 0.9 % 0-1 [facility] Bilirubin, totalOrdered By: Marilyn Shafer on 03-24-2025 Bilirubin [Mass/Vol] 0.30 mg/dL 0.00-1.30 [facility] CBC W/Diff, Automatedon 02-26 Absolute Lymph 2.39 X10 3/uL Normal 0.83-4.51 [facility] Comment on above: Performed By: #### L 506.0400, L502.0500, L100.0100, L501.9520, L500.4050, L503.0106 #### [facility] [address] [place], [address] Absolute Neut 2.8 X10 3/uL Normal 2.0-7.7 [facility] Comment on above: Performed By: #### L 506.0400, L502.0500, L100.0100, L501.9520, L500.4050, L503.0106 #### [facility] [address] [place], [address] Basophils/100 WBC (Bld) 0.9 % Normal 0-1 [facility] Comment on above: Performed By: #### L 506.0400, L502.0500, L100.0100, L501.9520, L500.4050, L503.0106 #### [facility] [address] [place], [address] Eosinophils/100 WBC (Bld) 2.6 % Normal 0-5 [facility] Comment on above: Performed By: #### L 506.0400, L502.0500, L100.0100, L501.9520, L500.4050, L503.0106 #### [facility] [address] [place], [address] Erythrocyte distribution width (RBC) [Ratio] 13.3 % Normal 11.6-14.6 [facility] Comment on above: Performed By: #### L 506.0400, L502.0500, L100.0100, L501.9520, L500.4050, L503.0106 #### [facility] [address] [place], [address] Hematocrit (Bld) [Volume fraction] 43.6 % Normal 37-47 [facility] Comment on above: Performed By: #### L 506.0400, L502.0500, L100.0100, L501.9520, L500.4050, L503.0106 #### [facility] [address] [place], [address] Hemoglobin (Bld) [Mass/Vol] 14.5 g/dL Normal 12.0-15.0 [facility] Comment on above: Performed By: #### L 506.0400, L502.0500, L100.0100, L501.9520, L500.4050, L503.0106 #### [facility] [address] [place], [address] IG% 0.200 Normal 0.0-0.9 [facility] Comment on above: Result Comment: IG% - Immature Granulocytes (promyelocytes, myelocytes and metamyelocytes) > 1% indicates that a LEFT SHIFT is Present. Performed By: #### L 506.0400, L502.0500, L100.0100, L501.9520, L500.4050, L503.0106 #### [facility] [address] [place], [address] Lymphocytes/100 WBC (Bld) 40.7 % Normal 19-41 [facility] Comment on above: Performed By: #### L 506.0400, L502.0500, L100.0100, L501.9520, L500.4050, L503.0106 #### [facility] [address] [place], [address] MCH (RBC) [Entitic mass] 29.8 pg Normal 27.0-32.0 [facility] Comment on above: Performed By: #### L 506.0400, L502.0500, L100.0100, L501.9520, L500.4050, L503.0106 #### [facility] [address] [place], [address] MCHC (RBC) [Mass/Vol] 33.3 g/dL Normal 32-36 [facility] Comment on above: Performed By: #### L 506.0400, L502.0500, L100.0100, L501.9520, L500.4050, L503.0106 #### [facility] [address] [place], [address] MCV (RBC) [Entitic vol] 89.5 fL Normal 81-99 [facility] Comment on above: Performed By: #### L 506.0400, L502.0500, L100.0100, L501.9520, L500.4050, L503.0106 #### [facility] [address] [place], [address] Monocytes/100 WBC (Bld) 8.2 % Normal 0-10 [facility] Comment on above: Performed By: #### L 506.0400, L502.0500, L100.0100, L501.9520, L500.4050, L503.0106 #### [facility] [address] [place], [address] Neutrophils/100 WBC (Bld) 47.4 % Normal 47-70 [facility] Comment on above: Performed By: #### L 506.0400, L502.0500, L100.0100, L501.9520, L500.4050, L503.0106 #### [facility] [address] [place], [address] Nucleated RBC (Bld) [#/Vol] 0 10*3/uL Normal 0-5 [facility] Comment on above: Performed By: #### L 506.0400, L502.0500, L100.0100, L501.9520, L500.4050, L503.0106 #### [facility] [address] [place], [address] Platelet mean volume (Bld) [Entitic vol] 9.0 fL Normal 6.2-12.0 [facility] Comment on above: Performed By: #### L 506.0400, L502.0500, L100.0100, L501.9520, L500.4050, L503.0106 #### [facility] [address] [place], [address] Platelets (Bld) [#/Vol] 386 10*3/uL Normal 150-450 [facility] Comment on above: Performed By: #### L 506.0400, L502.0500, L100.0100, L501.9520, L500.4050, L503.0106 #### [facility] [address] [place], [address] RBC (Bld) [#/Vol] 4.87 10*6/uL Normal 4.2-5.4 [facility] Comment on above: Performed By: #### L 506.0400, L502.0500, L100.0100, L501.9520, L500.4050, L503.0106 #### [facility] [address] [place], [address] RDW SD 43.5 fl Normal 35.1-43.9 [facility] Comment on above: Performed By: #### L 506.0400, L502.0500, L100.0100, L501.9520, L500.4050, L503.0106 #### [facility] [address] [place], [address] WBC (Bld) [#/Vol] 5.9 10*3/uL Normal 4.4-11.0 [facility] Comment on above: Performed By: #### L 506.0400, L502.0500, L100.0100, L501.9520, L500.4050, L503.0106 #### [facility] [address] [place], [address] Carbon dioxide, total [Moles /volume] in Central venous bloodOrdered By: Marilyn Shafer on 03-24-2025 CO2 [Moles/Vol] 22.0 mmol/L 21.0-32.0 [facility] Chloride assayOrdered By: Manuel Shafer on 03-24-2025 Chloride [Moles/Vol] 99 mmol/L 98-108 [facility] Comprehensive Metabolic Prof ilon 03-24-2025 Albumin [Mass/Vol] 4.0 g/dL Normal 3.5-5.0 [facility] Comment on above: Performed By: #### L 506.0400, L502.0500, L100.0100, L501.9520, L500.4050, L503.0106 #### [facility] [address] [place], [address] Albumin/Globulin [Mass ratio] 1.1 {ratio} Normal 0.9-2.4 [facility] Comment on above: Performed By: #### L 506.0400, L502.0500, L100.0100, L501.9520, L500.4050, L503.0106 #### [facility] [address] [place], [address] ALK PHOS 87 U/L Normal 35-104 [facility] Comment on above: Performed By: #### L 506.0400, L502.0500, L100.0100, L501.9520, L500.4050, L503.0106 #### [facility] [address] [place], [address] ALT [Catalytic activity/Vol] 28 U/L Normal <=34 [facility] Comment on above: Performed By: #### L 506.0400, L502.0500, L100.0100, L501.9520, L500.4050, L503.0106 #### [facility] [address] [place], [address] AST [Catalytic activity/Vol] 29 U/L Normal <=31 [facility] Comment on above: Performed By: #### L 506.0400, L502.0500, L100.0100, L501.9520, L500.4050, L503.0106 #### [facility] [address] [place], [address] Bilirubin [Mass/Vol] 0.30 mg/dL Normal 0.00-1.30 [facility] Comment on above: Performed By: #### L 506.0400, L502.0500, L100.0100, L501.9520, L500.4050, L503.0106 #### [facility] [address] [place], [address] BUN/CRE 15.4 RATIO Normal 10-20 [facility] Comment on above: Performed By: #### L 506.0400, L502.0500, L100.0100, L501.9520, L500.4050, L503.0106 #### [facility] [address] [place], [address] Calcium [Mass/Vol] 9.7 mg/dL Normal 7.6-11.0 [facility] Comment on above: Performed By: #### L 506.0400, L502.0500, L100.0100, L501.9520, L500.4050, L503.0106 #### [facility] [address] [place], [address] Chloride [Moles/Vol] 99 mmol/L Normal 98-108 [facility] Comment on above: Performed By: #### L 506.0400, L502.0500, L100.0100, L501.9520, L500.4050, L503.0106 #### [facility] [address] [place], [address] CO2 [Moles/Vol] 22.0 mmol/L Normal 21.0-32.0 [facility] Comment on above: Performed By: #### L 506.0400, L502.0500, L100.0100, L501.9520, L500.4050, L503.0106 #### [facility] [address] [place], [address] Creatinine [Mass/Vol] 0.72 mg/dL Normal 0.70-1.20 [facility] Comment on above: Performed By: #### L 506.0400, L502.0500, L100.0100, L501.9520, L500.4050, L503.0106 #### [facility] [address] [place], [address] GAP 13 Normal 5-15 [facility] Comment on above: Performed By: #### L 506.0400, L502.0500, L100.0100, L501.9520, L500.4050, L503.0106 #### [facility] [address] [place], [address] GFR/1.73 sq M.predicted among non-blacks MDRD (S/P/Bld) [Vol rate/Area] 104 mL/min/{1.73_m2} Normal >60 [facility] Comment on above: Result Comment: mL/m in/1.73m2 CKD-EPI Creatinine Equation (2020) Performed By: #### L 506.0400, L502.0500, L100.0100, L501.9520, L500.4050, L503.0106 #### [facility] [address] [place], [address] Globulin (S) [Mass/Vol] 3.5 g/dL Normal 2.2-4.2 [facility] Comment on above: Performed By: #### L 506.0400, L502.0500, L100.0100, L501.9520, L500.4050, L503.0106 #### [facility] [address] [place], [address] Glucose [Mass/Vol] 197 mg/dL High 70-99 [facility] Comment on above: Performed By: #### L 506.0400, L502.0500, L100.0100, L501.9520, L500.4050, L503.0106 #### [facility] [address] [place], [address] Potassium [Moles/Vol] 4.5 mmol/L Normal 3.3-5.1 [facility] Comment on above: Performed By: #### L 506.0400, L502.0500, L100.0100, L501.9520, L500.4050, L503.0106 #### [facility] [address] [place], [address] Sodium [Moles/Vol] 134 mmol/L Normal 133-145 [facility] Comment on above: Performed By: #### L 506.0400, L502.0500, L100.0100, L501.9520, L500.4050, L503.0106 #### [facility] [address] [place], [address] T PROT 7.5 g/dL Normal 5.9-8.4 [facility] Comment on above: Performed By: #### L 506.0400, L502.0500, L100.0100, L501.9520, L500.4050, L503.0106 #### [facility] [address] [place], [address] Urea nitrogen [Mass/Vol] 11 mg/dL Normal 4-19 [facility] Comment on above: Performed By: #### L 506.0400, L502.0500, L100.0100, L501.9520, L500.4050, L503.0106 #### [facility] [address] [place], [address] Eosinophil percentageOrdered By: Marilyn Shafer on 03-24-2025 Eosinophils/100 WBC (Bld) 2.6 % 0-5 [facility] Erythrocyte distribution wid th ratioOrdered By: Marilyn Shafer on 03-24-2025 Erythrocyte distribution width (RBC) [Ratio] 13.3 % 11.6-14.6 [facility] Erythrocyte distribution wid th standard deviationOrdered By: Marilyn Shafer on 03-24-2025 Erythrocyte distribution width (RBC) [Ratio] 43.5 fl 35.1-43.9 [facility] Glomerular filtration rate ( GFR) estimation/1.73 sq m using serum, plasma, or whole bOrdered By: Marilyn Shafer on 03-24-2025 GFR/1.73 sq M.predicted among non-blacks MDRD (S/P/Bld) [Vol rate/Area] 104 mL/min/{1.73_m2} >60 [facility] Comment on above: mL/min/1.73m2 CKD-EP I Creatinine Equation (2020) Hematocrit Auto (Bld) [Volum e fraction]Ordered By: Marilyn Shafer on 03-24-2025 Hematocrit (Bld) [Volume fraction] 43.6 % 37-47 [facility] Hemoglobin measurementOrdere d By: Marilyn Shafer on 03-24-2025 Hemoglobin (Bld) [Mass/Vol] 14.5 g/dL 12.0-15.0 [facility] Immature granulocytes/100 WB C Auto (Bld)Ordered By: Marilyn Shafer on 03-24-2025 Immature granulocytes/100 WBC (Bld) 0.200 % 0.0-0.9 [facility] Comment on above: IG% - Immature Granu locytes (promyelocytes, myelocytes and metamyelocytes) > 1% indicates that a LEFT SHIFT is Present. Laboratory - Chemistry and C hemistry - challengeOrdered By: Marilyn Shafer on 03-24-2025 AST [Catalytic activity/Vol] 29 U/L <32 [facility] MCV (mean corpuscular volume ) determinationOrdered By: Marilyn Shafer on 03-24-2025 MCV (RBC) [Entitic vol] 89.5 fL 81-99 [facility] Mean corpuscular hemoglobin (MCH) determinationOrdered By: Marilyn Shafer on 03-24-2025 MCH (RBC) [Entitic mass] 29.8 pg 27.0-32.0 [facility] Mean corpuscular hemoglobin concentration (MCHC) determinationOrdered By: Marilyn Shafer on 03-24-2025 MCHC (RBC) [Mass/Vol] 33.3 g/dL 32-36 [facility] Mean platelet volume determi nationOrdered By: Marilynpancho Shafer on 03-24-2025 Platelet mean volume (Bld) [Entitic vol] 9.0 fL 6.2-12.0 [facility] Microalbumin,Random Urineon 03-24-2025 MICROALBUMIN,UR < 12.0 Normal NO RANGE EST. [facility] Comment on above: Performed By: #### L 506.0400, L502.0500, L100.0100, L501.9520, L500.4050, L503.0106 #### [facility] [address] [place], [address] Monocyte percentageOrdered B y: Marilyn Shafer on 03-24-2025 Monocytes/100 WBC (Bld) 8.2 % 0-10 [facility] Neutrophil percentageOrdered By: Marilyn Shafer on 03-24-2025 Neutrophils/100 WBC (Bld) 47.4 % 47-70 [facility] Nucleated red blood cell per centageOrdered By: Marilyn Shafer on 03-24-2025 Nucleated RBC/100 WBC (Bld) [Ratio] 0 % 0-5 [facility] Platelet countOrdered By: Manuel Shafer on 03-24-2025 Platelets (Bld) [#/Vol] 386 10*3/uL 150-450 [facility] Potassium measurement (mass/ volume)Ordered By: Marilyn Shafer on 03-24-2025 Potassium (Unsp spec) [Mass/Vol] 4.5 mmol/L 3.3-5.1 [facility] RBC Auto (Bld) [#/Vol]Ordere d By: Marilyn Shafer on 03-24-2025 RBC (Bld) [#/Vol] 4.87 10*6/uL 4.2-5.4 [facility] Serum creatinine measurement (mass/volume)Ordered By: Marilyn Shafer on 03-24-2025 Creatinine [Mass/Vol] 0.72 mg/dL 0.70-1.20 [facility] Serum globulin measurementOr dered By: Marilyn Shafer on 03-24-2025 Globulin (S) [Mass/Vol] 3.5 g/dL 2.2-4.2 [facility] Serum glucose measurement (m ass/volume)Ordered By: Marilyn Shafer on 03-24-2025 Glucose [Mass/Vol] 197 mg/dL High 70-99 [facility] Serum or plasma alanine [place] otransferase (ALT) measurementOrdered By: Marilyn Shafer on 03-24-2025 ALT [Catalytic activity/Vol] 28 U/L <35 [facility] Serum or plasma albumin debbi urement (mass/volume)Ordered By: Marilyn Shafer on 03-24-2025 Albumin [Mass/Vol] 4.0 g/dL 3.5-5.0 [facility] Serum or plasma albumin/glob ulin mass ratioOrdered By: Marilyn Shafer on 03-24-2025 Albumin/Globulin [Mass ratio] 1.1 {ratio} 0.9-2.4 [facility] Serum or plasma alkaline kiara sphatase measurementOrdered By: Marilyn Shafer on 03-24-2025 ALP [Catalytic activity/Vol] 87 U/L 35-104 [facility] Serum or plasma calcium debbi urement (mass/volume)Ordered By: Marilyn Shafre on 03-24-2025 Calcium [Mass/Vol] 9.7 mg/dL 7.6-11.0 [facility] Serum or plasma urea nitroge n measurement (mass/volume)Ordered By: Marilyn Shafer on 03-24-2025 Urea nitrogen [Mass/Vol] 11 mg/dL 4-19 [facility] Sodium levelOrdered By: Delmar Shafer on 03-24-2025 Sodium [Moles/Vol] 134 mmol/L 133-145 [facility] T4 Free Directon 03-24-2025 T4 FREE DIRECT 1.10 ng/dL Normal 0.76-1.46 [facility] Comment on above: Order Comment: N Performed By: #### L 506.0400, L502.0500, L100.0100, L501.9520, L500.4050, L503.0106 #### [facility] [address] [place], [place], [id number] T4 freeOrdered By: Marilyn celis on 03-24-2025 Free T4 [Mass/Vol] 1.10 ng/dL 0.76-1.46 [facility] TSH DL <= 0.005 mIU/L QnOrde red By: Marilyn Shafer on 03-24-2025 TSH Qn 2.390 uIU/mL 0.300-4.200 [facility] Thyroid Stim Hormone (TSH)on 03-24-2025 TSH 2.390 uIU/mL Normal 0.300-4.200 [facility] Comment on above: Performed By: #### L 506.0400, L502.0500, L100.0100, L501.9520, L500.4050, L503.0106 #### [facility] [address] [place], [place], [id number] Total proteinOrdered By: Dov Shafer on 03-24-2025 Protein [Mass/Vol] 7.5 g/dL 5.9-8.4 [facility] Urine albumin measurement [facility] detection limit of 20 mg/L or less (mass/volume)Ordered By: Marilyn Shafer on 03-24-2025 Albumin DL <= 20 mg/L (U) [Mass/Vol] < 12.0 mg/L NO RANGE EST. [facility] Vitamin B12on 03-24-2025 Cobalamin (Vitamin B12) [Mass/Vol] 543 pg/mL Normal 180-914 [facility] Comment on above: Performed By: #### L 506.0400, L502.0500, L100.0100, L501.9520, L500.4050, L503.0106 #### [facility] [address] [place], [place], [address] Vitamin B12 ser/plasOrdered By: Marilyn Shafer on 03-24-2025 Cobalamin (Vitamin B12) [Mass/Vol] 543 pg/mL 180-914 [facility] White blood cell (WBC) count Ordered By: Marilyn Shafer on 03-24-2025 WBC (Bld) [#/Vol] 5.9 10*3/uL 4.4-11.0 [facility] Pulmonary Visit Reporton Pulmonary Visit Report [facility] [address] [place], [place] [address] OFFICE VISIT Date of Service: 12/02/24 MR#: [id number] Acct: [id number] Name: ROBBY JI Rep #: [id number] : 1980 Provider: Nallely Constantino NP Age/Sex: 44/F Location: [facility] [place] [place].PMW Status: Signed Assessment and Plan Assessment and Plan (1) ZULY (obstructive sleep apnea): Status: Chronic Comment: BiPAP 15/11 cm of water Plan: Apnea is well-controlled with use of BiPAP at current settings. The patient is benefiting from PAP therapy. I recommend that she continue on BiPAP 15 over 11 cm. The patient would like to switch vendors to [employer] today. I have asked for the staff to help facilitate this transition. She is reporting some oral dryness and I do suspect that this is because she is not utilizing humidification in her PAP device. I have asked for her to utilize humidification and have offered her suggestions and ways to care for her PAP supplies. I have recommended that she consider an alternative fullface style mask. The patient understands that she would be able to utilize PAP education through [facility]. She has declined this offer today but will call this practice if she would like to proceed in the future. I have recommended follow-up in 1 year with compliance download. The patient should continue to maintain updated mask, tubing, supplies. (2) Morbid obesity: Status: Chronic Plan: Complicates care, exam, plan, prognosis. Weight loss is warranted through prudent diet and daily exercise. Her blood pressure is elevated today, patient is made aware. She is currently asymptomatic. [facility] and I have asked for her to have her blood pressure checked again at that visit. The patient should advance her follow-up with PCP if her blood pressure remains elevated. Plan Details Follow Up: 1 Year (LMR) HPI HPI Comments Details: Patient is a 44-year-old female who presents to the office today follow-up on her obstructive sleep apnea. She is ambulatory and currently on room air. She has not been seen in the ED or urgent care for any respiratory illnesses since her last office visit. She has not required any antibiotics or prednisone for any breathing problems. She denies any shortness of breath. She denies any cough, sputum production or hemoptysis. She has not had any wheezing, chest tightness, chest pain or palpitations. She denies any fever, chills or body aches. The patient is using BiPAP without significant air leak or snore. There are no concerns about the air pressure. Sleep is refreshing. The patient is reporting that she has been able to advance her compliance. Daytime hypersomnia is improved. She is using a FFM that has a hard plastic that is rubbing around her eyes. She does experience occasional dry mouth. She denies morning headache. She is not using humidification on her PAP device. Compliance report from November 30, 2024 for the last 30 days shows that she is 100% compliant with therapy, using the device 8 hours and 40 minutes nightly. AHI 0.3 and there is minimal air leak i dentified. The report indicates that patient is utilizing BiPAP 15/11 cm. Intake Vital Signs 08/31/24 07:20 12/02/24 10:22 Height 5 ft 10.5 in 5 ft 10.5 in Weight: 373 lb BMI 52.7 BP 162/80 H Blood Pressure Location Lt brachial Position Sitting Respiration 18 Pulse 89 Pulse Source Monitor Temp 97.7 F L Temperature Source Temporal Artery Pulse Oximetry (%) 96 Oxygen Delivery Method room air Intake Visit Reasons: 3 M FU Chief Complaint: c-scope Paedodontist Required: No DME Vendor: Alisha Accompanied by: Self Allergies Penicillins Allergy (Verified 12/02/24 15:04) Hives Medications ???Medication ???Instructions ???Recorded ???Confirmed ???Type levothyroxine 88 mcg tablet 88 mcg PO DAILY 11/26/15 12/02/24 History loratadine 10 mg tablet 10 mg PO DAILY 11/26/15 12/02/24 H istory fluticasone propionate 50 50 mcg intranasal QDAY PRN allergy 11/13/17 12/02/24 History mcg/actuation nasal symptoms spray,suspension (Allergy Relief (fluticasone)) cholecalciferol (vitamin D3) 125 5,000 unit PO QDAY 11/20/17 History mcg (5,000 unit) capsule apixaban 2.5 mg tablet (Eliquis) 2.5 mg PO DAILY 12/09/20 12/02/24 History escitalopram oxalate 10 mg tablet 20 mg PO DAILY 06/25/22 12/02/24 History (Lexapro) glimepiride 2 mg tablet 2 mg PO DAILY 06/19/23 12/02/24 Hi story metformin 1,000 mg tablet 1,000 mg PO QHS 06/19/23 12/02/24 History metoprolol succinate 50 mg 50 mg PO QHS 07/24/23 12/02/24 His tory tablet,extended release 24 hr lisinopril 20 mg tablet 20 mg PO QDAY 08/31/24 12/02/24 Hi story omeprazole 40 mg capsule,delayed 40 mg PO (more content not included)... Normal [facility] SCRN MAMM (CAD)W/TRAY [place] n 09-16-2024 SCRN MAMM (CAD)W/TRAY [facility] [address] [place] [address] SCRN MAMM (CAD)W/TRAY BILAT MR#: [id number] Acct: [id number] Name: ROBBY JI Rep #: [id number] : 1980 F 44 From: Lisandro laurent MD PCP: Gabbie Robison Sandy, [facility] [employer] Status: REG CLI Study: SCRN MAMM (CAD)W/TRAY BILAT Date of Exam: 08/29 Exam# [id number] Ordering Dr: Gabbie Robison [facility] -[id number] MAMMOGRAPHY - BILATERAL SCREENING REASON FOR EXAM: Female, 44 years old. Routine annual screening examination. PERTINENT HISTORY: Non-contributory. TECHNIQUE: Digital bilateral breast tray (3D mammographic acquisition) in the CC and MLO projections. 2-D mediolateral oblique (MLO) and craniocaudad (CC) views of both breasts were obtained. CAD: Full Field Digital Mammography with Computer Added Detection was performed. COMPARISON: Comparison is made with prior study August 22, 2023 and August 16, 2022. FINDINGS: Breast Composition: There are scattered areas of fibroglandular density. There are no dominant masses or suspicious calcifications. Stable 6.8 mm low-density nodule with peripheral calcific rim in the anterior superior lateral periareolar region of the right breast including with a fatty cyst. No other significant abnormalities are identified. There has been no significant change since the prior study. BI/SCRN MAMM (CAD)W/TRAY BILAT IMPRESSION: Stable bilateral screening mammogram. Yearly follow-up mammogram recommended. (A) ASSESSMENT CATEGORY: BIRADS Category 2: Benign. A letter regarding these results will be sent to the patient by the facility within 30 days. Approximately 10% of breast cancers are not detected by mammography. A normal mammogram should not delay biopsy of a clinically suspicious abnormality. [id number] Electronically Signed: Lisandro Mackey MD at 13:36 EST , CC: [facility] Gabbie Robison [employer]chandising Specialist: Signed Normal [facility] Basophil percentageOrdered B y: [facility] Gabbie Robison on 02-21-2024 Bilirubin [Mass/Vol] 0.40 mg/dL 0.20-1.00 [facility] Comment on above: For patients on eltr ombopag therapy, use of Dimension [place] TBIL is not recommended. Chloride [Moles/Vol] 102 mmol/L 98-107 [facility] Glucose [Mass/Vol] 227 mg/dL 74-106 [facility] Comment on above: Glucose result great er than or equal to 200 mg/dLsuggests DIABETES MELLITUS per A.D.A. criteria. Hemoglobin (Bld) [Mass/Vol] 13.0 g/dL 12.0-15.0 [facility] Potassium [Moles/Vol] 4.1 mmol/L 3.5-5.1 [facility] Protein [Mass/Vol] 7.4 g/dL 6.4-8.2 [facility] Sodium [Moles/Vol] 133 mmol/L 136-145 [facility] WBC (Bld) [#/Vol] 10.8 10*3/uL 4.4-11.0 [facility] Determination of erythrocyte mean corpuscular volume (MCV)Ordered By: [facility] Gabbie Robison on 02-21-2024 MCV (RBC) [Entitic vol] 91.0 fL 81-99 [facility] Erythrocyte distribution wid th ratioOrdered By: [facility] Gabbie Robison on 02-21-2024 Erythrocyte distribution width (RBC) [Ratio] 14.3 % 11.6-14.6 [facility] Erythrocyte distribution wid th standard deviationOrdered By: [facility] Gabbie Robison on 02-21-2024 Erythrocyte distribution width (RBC) [Entitic vol] 47.7 fL 35.1-43.9 [facility] Hematocrit Auto (Bld) [Volum e fraction]Ordered By: [facility] Gabbie Robison on 02-21-2024 Hematocrit (Bld) [Volume fraction] 41.6 % 37-47 [facility] Laboratory - Chemistry and C hemistry - challengeOrdered By: [facility] Gabbie Robison on 02-21-2024 Albumin/Globulin [Mass ratio] 0.8 {ratio} 0.9-2.4 [facility] ALP [Catalytic activity/Vol] 79 U/L 45-117 [facility] ALT [Catalytic activity/Vol] 41 U/L 13-56 [facility] CO2 [Moles/Vol] 26.0 mmol/L 21.0-32.0 [facility] Globulin (S) [Mass/Vol] 4.1 g/dL 2.2-4.2 [facility] Urea nitrogen/Creatinine [Mass ratio] 21.4 mg/mg 10-20 [facility] - Hematology and Cell countsOrdered By: [facility] Gabbie Robison on 02-21-2024 MCH (RBC) [Entitic mass] 28.4 pg 27.0-32.0 [facility] MCHC (RBC) [Mass/Vol] 31.3 g/dL 32-36 [facility] Platelet mean volume (Bld) [Entitic vol] 9.6 fL 6.2-12.0 [facility] Platelets (Bld) [#/Vol] 393 10*3/uL 150-450 [facility] No Panel InformationOrdered By: [facility] Gabbie Robison on 02-21-2024 Estimated GFR (MDRD) Amer 116 mL/min >60 [facility] Comment on above: GFR Calc Estimated GFR (MDRD) Non-Af Amer 96 mL/min >60 [facility] Comment on above: Non- GFR Calc Urine Microalbumin/Creatinine Ratio 22.0 mg/g CRE <30 [facility] RBC Auto (Bld) [#/Vol]Ordere d By: [facility] Gabbie Robison on 02-21-2024 RBC (Bld) [#/Vol] 4.57 10*6/uL 4.2-5.4 [facility] Serum or plasma calcium debbi urement (mass/volume)Ordered By: [facility] Gabbie Robison on 02-21-2024 Calcium [Mass/Vol] 9.1 mg/dL 8.5-10.1 [facility] Serum or plasma creatinine m easurement (mass/volume)Ordered By: [facility] Gabbie Robison on 02-21-2024 Creatinine [Mass/Vol] 0.70 mg/dL 0.55-1.02 [facility] Comment on above: The validity of the calculated GFR & GFRAA in patients over 70 years has not been determined. Clinical correlation is essential. Serum or plasma thyroid stim ulating hormone (TSH) measurement (units/volume)Ordered By: [facility] Gabbie Robison on 02-21-2024 TSH Qn 2.82 uIU/mL 0.358-3.74 [facility] Serum or plasma urea nitroge n measurement (mass/volume)Ordered By: [facility] Gabbie Robison on 02-21-2024 Urea nitrogen [Mass/Vol] 15 mg/dL 7-18 [facility] Thin prep Papanicolaou smear with manual screeningOrdered By: [facility] Gabbie Robison on 02-21-2024 Thin prep Papanicolaou smear with manual screening 3.3 g/dL 3.2-5.0 [facility] Thin prep Papanicolaou smear with manual screening 20 U/L 15-37 [facility] Thin prep Papanicolaou smear with manual screening 5 5-15 [facility] Thin prep Papanicolaou smear with manual screening 22.4 mg/L NO RANGE EST. [facility] Thin prep Papanicolaou smear with manual screening 1.13 ng/dL 0.76-1.46 [facility] Urine creatinine measurement (mass/volume)Ordered By: [facility] Gabbie Robison on 02-21-2024 Creatinine (U) [Mass/Vol] 102.00 mg/dL NO RANGE EST. [facility] Glucose Glucometer (BldC) [M ass/Vol]Ordered By: Autumn Cano on 07-29-2023 Glucose [Mass/Vol] 152 mg/dL 74-106 [facility] Comment on above: MANAGEMENT OF PATIEN T CARE PER NURSING PROTOCOL Laboratory - Chemistry and C hemistry - challengeOrdered By: Rich Gr on 07-29-2023 HCG ( test) Ql (U) Negative [facility] Comment on above: Very dilute urine sp ecimens, as indicated by a low specificgravity, may not contain sales representative church furniture levels of hCG. If is still suspected, a first morning urinespecimen should be collected 48 hours later and tested. HPV W/GENOTYPE THIN PREPon 1 HPV 16 Ag Ql (Unsp spec) Negative Normal Negative for HPV DNA high risk type 16 by PCR [facility] Comment on above: Order Comment: Speci men Type: FLUID SPECIMEN Ordering Facility: [facility] Address: [address] [place] [address] Performed By: #### H PVHRT #### [facility] CLIA [id number] [address] [place] [address] [place] HPV 18 Ag Ql (Unsp spec) Negative Normal Negative for HPV DNA high risk type 18 by PCR [facility] Comment on above: Order Comment: Speci men Type: FLUID SPECIMEN Ordering Facility: [facility] Address: [address] [place] [address] Performed By: #### H PVHRT #### [facility] CLIA [id number] [address] [place] [address] [place] HPV 31+33+35+39+45+51+52+56 +58+59+66+68 DNA ALTA+probe Ql (Cvx) Negative for HPV DNA high risk types: 31,33,35,39,45,51,5 2,56,58,59,66,68 by PCR. Normal Negative for HPV DNA high risk types: 31,33,35,39, 45,51,52,56, 58,59,66,68 by PCR. [facility] Comment on above: Order Comment: Speci men Type: FLUID SPECIMEN Ordering Facility: [facility] Address: [address] [place] [address] Performed By: #### H PVHRT #### [facility] CLIA [id number] [address] [place] [address] [place] PAP FLUID CERVICAL SCREENING on 08-21-2022 CASE REPORT Normal [facility] Comment on above: Order Comment: Speci men Type: FLUID SPECIMEN Ordering Facility: [facility] Address: [address] [place] [address], [place] [address] Result Comment: Gyne cologic Cytology Report Case: [id number] Authorizing Provider: Raeann Gonzalez CNP Collected: 08/21/2022 03:00 PM Ordering Location: [facility] Received: 08/22/2022 12:21 PM First Screen: LUDWIN Sanchez, ASCP Specimen: Pap, Digital Imaging Technician, Screening, CERVICAL SCREENING FLUID Performed By: #### L [id number] #### [facility] CLIA [id number] [address] [place] [address] [place] CLINICAL HISTORY ROUTINE EXAM Normal [facility] Comment on above: Order Comment: Speci men Type: FLUID SPECIMEN Ordering Facility: [facility] Address: [address] [place] [address] Performed By: #### L [id number] #### [facility] CLIA [id number] [address] [place] [address] [place] CYTOLOGY INTERPRETATION PAP Normal [facility] Comment on above: Order Comment: Speci men Type: FLUID SPECIMEN Ordering Facility: [facility] Address: [address] [place] [address], [place] [address] Result Comment: Nega tive for Intraepithelial lesion or malignancy. Performed By: #### L [id number] #### [facility] CLIA [id number] [address] [place] [address] [place] FINAL DIAGNOSIS Normal [facility] Comment on above: Order Comment: Speci men Type: FLUID SPECIMEN Ordering Facility: [facility] Address: [address] [place] [address], [place] [address] Result Comment: A - CERVICAL SCREENING FLUID Satisfactory for interpretation, No endocervical component Negative for Intraepithelial lesion or malignancy. Performed By: #### L [id number] #### [facility] CLIA [id number] [address] [place] [address] [place] FINAL PERFORMING LAB Normal [facility] Comment on above: Order Comment: Speci men Type: FLUID SPECIMEN Ordering Facility: [facility] Address: [address] [place] [address] Result Comment: Tech nical component, fly finisher screening performed at [facility], [address] [facility] [address] CLIA# [id number] Diagnostic interpretation performed at [facility], [address] [facility] [address] CLIA# [id number] Weapons And Tactics Instructor: Darrell Watkins M.D. Performed By: #### L [id number] #### [facility] CLIA [id number] [address] [place] [address] [place] HPV REQUESTED? Yes, automatic HPV patients over 30 Normal [facility] Comment on above: Order Comment: Speci men Type: FLUID SPECIMEN Ordering Facility: [facility] Address: [address] [place] [address] Performed By: #### L [id number] #### [facility] CLIA [id number] [address] [address] [place] LMP 08/19/2022 Normal [facility] Comment on above: Order Comment: Speci men Type: FLUID SPECIMEN Ordering Facility: [facility] Address: [address] [place] [address] Performed By: #### L [id number] #### [facility] CLIA [id number] [address] [place] [id number] [place] PAP DISCLAIMER COMMENT The Pap Smear is a screening test for cervical cancer. False negative results occur with all screening tests, emphasizing the need for rescreening at recommended intervals, and clinical correlation. Normal [facility] Comment on above: Order Comment: Speci men Type: FLUID SPECIMEN Ordering Facility: [facility] Address: [address] [place] [address], [place] [address] Performed By: #### L [id number] #### [facility] CLIA [id number] [address] [place] [address] [place] PAP FRUIT RAISER COMMENT This specimen has been analyzed by the ThinPrep Imaging System, an automated imaging and review system, which assists the laboratory in evaluating cells on ThinPrep Pap tests. Following automated imaging, selected paz from every slide are reviewed by a fly finisher. Normal [facility] Comment on above: Order Comment: Speci men Type: FLUID SPECIMEN Ordering Facility: [facility] Address: [address] [place] [address], [place] [address] Performed By: #### L [id number] #### [facility] CLIA [id number] [address] [place] [address] [place] Absolute lymphocyte counton 02-20-2022 Lymphocytes Auto (Unsp spec) [#/Vol] 3.82 10*3/uL 0.83-4.51 [facility] Work Phone: Basophil percentageon 2021 Basophils/100 WBC (Bld) 0.5 % 0-1 [facility] Work Phone: Bilirubin [Mass/Vol] 0.40 mg/dL 0.20-1.00 [facility] Work Phone: Comment on above: For patients on eltr ombopag therapy, use of Dimension [place] TBIL is not recommended. Chloride [Moles/Vol] 103 mmol/L 98-107 [facility] Work Phone: Cholesterol [Mass/Vol] 199 mg/dL <200 [facility] Work Phone: Comment on above: <200 mg/dL Desirable 200-240 mg/dL Borderline >240 mg/dL High Risk Eosinophils/100 WBC (Bld) 1.9 % 0-5 [facility] Work Phone: Glucose [Mass/Vol] 143 mg/dL 74-106 [facility] Work Phone: Comment on above: Fasting Glucose resu lt greater than or equal to 126 mg/dL suggests DIABETES MELLITUS per A.D.A. criteria. Neutrophils (Bld) [#/Vol] 4.9 10*3/uL 2.0-7.7 [facility] Work Phone: Neutrophils/100 WBC (Bld) 50.4 % 47-70 [facility] Work Phone: Potassium [Moles/Vol] 3.9 mmol/L 3.5-5.1 [facility] Work Phone: Protein [Mass/Vol] 7.1 g/dL 6.4-8.2 [facility] Work Phone: Sodium [Moles/Vol] 135 mmol/L 136-145 [facility] Work Phone: Triglyceride [Mass/Vol] 109 mg/dL [facility] Work Phone: Comment on above: The drugs N-Acetylcy steine and Metamizole may falsely depress this assay.Serum Triglycerides Reference Interval Normal <150 mg/dL Borderline high 150 - 199 mg/dL High 200 - 499 mg/dL Very High > or = 500 mg/dL WBC (Bld) [#/Vol] 9.6 10*3/uL 4.4-11.0 [facility] Work Phone: Blood erythrocytes count (nu mber/volume)on 02-20-2022 RBC (Bld) [#/Vol] 4.51 10*6/uL 4.2-5.4 [facility] Work Phone: Blood hemoglobin measurement (mass/volume)on 02-20-2022 Hemoglobin (Bld) [Mass/Vol] 13.1 g/dL 12.0-15.0 [facility] Work Phone: Blood lymphocytes/100 leukoc yteson 02-20-2022 Lymphocytes/100 WBC (Bld) 39.6 % 19-41 [facility] Work Phone: Blood monocytes/100 leukocyt eson 02-20-2022 Monocytes/100 WBC (Bld) 7.2 % 0-10 [facility] Work Phone: Blood platelet mean volumeon 02-20-2022 Platelet mean volume (Bld) [Entitic vol] 9.7 fL 6.2-12.0 [facility] Work Phone: Determination of erythrocyte mean corpuscular volume (MCV)on 02-20-2022 MCV (RBC) [Entitic vol] 87.6 fL 81-99 [facility] Work Phone: Hematocrit Auto (Bld) [Volum e fraction]on 02-20-2022 Hematocrit (Bld) [Volume fraction] 39.5 % 37-47 [facility] Work Phone: Laboratory - Chemistry and C hemistry - challengeon 02-20-2022 ALP [Catalytic activity/Vol] 76 U/L 45-117 [facility] Work Phone: ALT [Catalytic activity/Vol] 30 U/L 13-56 [facility] Work Phone: CO2 [Moles/Vol] 28.0 mmol/L 21.0-32.0 [facility] Work Phone: Globulin (S) [Mass/Vol] 3.9 g/dL 2.2-4.2 [facility] Work Phone: Urea nitrogen/Creatinine [Mass ratio] 17.2 mg/mg 10-20 [facility] Work Phone: Laboratory - Hematology and Cell countson 02-20-2022 Erythrocyte distribution width (RBC) [Entitic vol] 46.0 fL 35.1-43.9 [facility] Work Phone: Erythrocyte distribution width (RBC) [Ratio] 14.5 % 11.6-14.6 [facility] Work Phone: Immature granulocytes/100 WBC (Bld) 0.400 % 0.0-0.9 [facility] Work Phone: Comment on above: IG% - Immature Granu locytes (promyelocytes, myelocytes and metamyelocytes) > 1% indicates that a LEFT SHIFT is Present. MCH (RBC) [Entitic mass] 29.0 pg 27.0-32.0 [facility] Work Phone: Nucleated RBC/100 WBC (Bld) [Ratio] 0 % 0-5 [facility] Work Phone: MCHC Auto (RBC) [Mass/Vol]on 02-20-2022 MCHC (RBC) [Mass/Vol] 33.2 g/dL 32-36 [facility] Work Phone: No Panel Informationon 02-20 Estimated GFR (MDRD) Amer 130 mL/min >60 [facility] Work Phone: Comment on above: GFR Calc Estimated GFR (MDRD) Non-Af Amer 107 mL/min >60 [facility] Work Phone: Comment on above: Non- GFR Calc Thyroid Stimulating Hormone (TSH) 1.19 uIU/mL 0.358-3.74 [facility] Work Phone: Urine Microalbumin/Creatinine Ratio TNP [facility] Work Phone: Comment on above: Test not performed Vitamin D 25-Hydroxy 47.3 ng/mL [facility] Work Phone: Comment on above: Vitamin D 25(OH) Sta tus Range Deficiency <20 ng/mL (50nmol/L) Insufficiency 20 - 30 ng/mL (50 - 75 nmol/L) Sufficiency 30 - 100 ng/mL (75 - 250 nmol/L) Toxicity >100 ng/mL (>250 nmol/L) Platelets bldon 02-20-2022 Platelets (Bld) [#/Vol] 337 10*3/uL 150-450 [facility] Work Phone: Serum or plasma albumin debbi urement (mass/volume)on 02-20-2022 Albumin [Mass/Vol] 3.2 g/dL 3.2-5.0 [facility] Work Phone: Serum or plasma albumin/glob ulin mass ratioon 02-20-2022 Albumin/Globulin [Mass ratio] 0.8 {ratio} 0.9-2.4 [facility] Work Phone: Serum or plasma calcitriol m easurement (mass/volume)on 02-20-2022 1,25-dihydroxyvitamin D3 [Mass/Vol] 55.1 pg/mL [facility] Work Phone: Comment on above: Performed at: [address] [id number] Director: Marvin Morgan MD, Phone: [phone] Serum or plasma calcium debbi urement (mass/volume)on 02-20-2022 Calcium [Mass/Vol] 8.7 mg/dL 8.5-10.1 [facility] Work Phone: Serum or plasma cholesterol in HDL measurement (mass/volume)on 02-20-2022 Cholesterol in HDL [Mass/Vol] 78 mg/dL [facility] Work Phone: Comment on above: The drugs N-Acetylcy steine and Metamizole may falsely depress this assay. Reference Range HDL <40 mg/dL Low HDL Cholesterol HDL >or= 60 mg/dL High HDL Cholesterol Serum or plasma cholesterol in VLDL measurement (mass/volume)on 02-20-2022 Cholesterol in VLDL [Mass/Vol] 22 mg/dL 5-40 [facility] Work Phone: Serum or plasma creatinine m easurement (mass/volume)on 02-20-2022 Creatinine [Mass/Vol] 0.64 mg/dL 0.55-1.02 [facility] Work Phone: Comment on above: The validity of the calculated GFR & GFRAA in patients over 70 years has not been determined. Clinical correlation is essential. Serum or plasma low density lipoprotein (LDL) cholesterol measurement (mass/volume)on 02-20-2022 Cholesterol in LDL [Mass/Vol] 99 mg/dL 0-130 [facility] Work Phone: Serum or plasma urea nitroge n measurement (mass/volume)on 02-20-2022 Urea nitrogen [Mass/Vol] 11 mg/dL 7-18 [facility] Work Phone: Thin prep Papanicolaou smear with manual screeningon 02-20-2022 Thin prep Papanicolaou smear with manual screening 18 U/L 15-37 [facility] Work Phone: Thin prep Papanicolaou smear with manual screening 4 5-15 [facility] Work Phone: Thin prep Papanicolaou smear with manual screening < 5.0 mg/L NO RANGE EST. [facility] Work Phone: Urine creatinine measurement (mass/volume)on 02-20-2022 Creatinine (U) [Mass/Vol] 15.70 mg/dL NO RANGE EST. [facility] Work Phone: CBC and Differentialon 02-21 Abs Baso 0.04 k/uL Normal <0.11 [facility] Comment on above: Performed By: #### T SH, CMP, CBCDIF, LIPB, FT4, HBA1C #### [facility] Routine Lab [address] [place] [id number] Abs Bell 0.47 k/uL Normal <0.87 [facility] Comment on above: Performed By: #### T SH, CMP, CBCDIF, LIPB, FT4, HBA1C #### [facility] Routine Lab [address] [place], [place] [address] Abs Neut 3.84 k/uL Normal 1.45-7.50 [facility] Comment on above: Performed By: #### T SH, CMP, CBCDIF, LIPB, FT4, HBA1C #### [facility] Routine Lab [address] [place], [place] [address] Absolute nRBC <0.01 Normal <0.01 [facility] Comment on above: Performed By: #### T SH, CMP, CBCDIF, LIPB, FT4, HBA1C #### [facility] Routine Lab [address] [place] [phone] Basophils/100 WBC (Bld) 0.5 % [facility] Comment on above: Performed By: #### T SH, CMP, CBCDIF, LIPB, FT4, HBA1C #### [facility] Routine Lab [address] [place] [phone] DTYPE ADIFF Normal [facility] Comment on above: Performed By: #### T SH, CMP, CBCDIF, LIPB, FT4, HBA1C #### [facility] Routine Lab [address] [place] [phone] Eosinophils (Bld) [#/Vol] 0.11 10*3/uL Normal <0.46 [facility] Comment on above: Performed By: #### T SH, CMP, CBCDIF, LIPB, FT4, HBA1C #### [facility] Routine Lab [address] [place] [phone] Eosinophils/100 WBC (Bld) 1.4 % Normal [facility] Comment on above: Performed By: #### T SH, CMP, CBCDIF, LIPB, FT4, HBA1C #### [facility] Routine Lab [address] [place] [phone] Erythrocyte distribution width (RBC) [Ratio] 14.2 % Normal 11.5-15.0 [facility] Comment on above: Performed By: #### T SH, CMP, CBCDIF, LIPB, FT4, HBA1C #### [facility] Routine Lab [address] [place] [phone] Hematocrit (Bld) [Volume fraction] 45.3 % Normal 36.0-46.0 [facility] Comment on above: Performed By: #### T SH, CMP, CBCDIF, LIPB, FT4, HBA1C #### [facility] Routine Lab [address] [place], [place] [address] Hemoglobin (Bld) [Mass/Vol] 13.7 g/dL Normal 11.5-15.5 [facility] Comment on above: Performed By: #### T SH, CMP, CBCDIF, LIPB, FT4, HBA1C #### [facility] Routine Lab [address] [place] [address] Lymphocytes (Bld) [#/Vol] 3.33 10*3/uL Normal 1.00-4.00 [facility] Comment on above: Performed By: #### T SH, CMP, CBCDIF, LIPB, FT4, HBA1C #### [facility] Routine Lab [address] [place] [address] Lymphocytes/100 WBC (Bld) 42.7 % Normal [facility] Comment on above: Performed By: #### T SH, CMP, CBCDIF, LIPB, FT4, HBA1C #### [facility] Routine Lab [address] [place] [address] MCH 28.6 pG Normal 26.0-34.0 [facility] Comment on above: Performed By: #### T SH, CMP, CBCDIF, LIPB, FT4, HBA1C #### [facility] Routine Lab [address] [place] [address] MCHC (RBC) [Mass/Vol] 30.2 g/dL Low 30.5-36.0 [facility] Lab Comment on above: Performed By: #### T SH, CMP, CBCDIF, LIPB, FT4, HBA1C #### [facility] Routine Lab [address] [place] [address] MCV (RBC) [Entitic vol] 94.6 fL Normal 80.0-100.0 [facility] Lab Comment on above: Performed By: #### T SH, CMP, CBCDIF, LIPB, FT4, HBA1C #### [facility] Routine Lab [address] [place] [address] Monocytes/100 WBC (Bld) 6.0 % Normal [facility] Comment on above: Performed By: #### T SH, CMP, CBCDIF, LIPB, FT4, HBA1C #### [facility] Routine Lab [address] [place] [address] Neutrophils/100 WBC (Bld) 49.4 % Normal [facility] Comment on above: Performed By: #### T SH, CMP, CBCDIF, LIPB, FT4, HBA1C #### [facility] Routine Lab [address] [place] [address] NRBCs 0.0 /100 WBC Normal 0 [facility] Comment on above: Performed By: #### T SH, CMP, CBCDIF, LIPB, FT4, HBA1C #### [facility] Routine Lab [address] [place] [address] Platelet mean volume (Bld) [Entitic vol] 10.1 fL Normal 9.0-12.7 [facility] Comment on above: Performed By: #### T SH, CMP, CBCDIF, LIPB, FT4, HBA1C #### [facility] Routine Lab [address] [place] [address] Platelets (Bld) [#/Vol] 414 10*3/uL High 150-400 [facility] Comment on above: Performed By: #### T SH, CMP, CBCDIF, LIPB, FT4, HBA1C #### [facility] Routine Lab [address] [place] [address] RBC (Bld) [#/Vol] 4.79 10*6/uL Normal 3.90-5.20 [facility] Comment on above: Performed By: #### T SH, CMP, CBCDIF, LIPB, FT4, HBA1C #### [facility] Routine Lab [address] [place] [address] WBC (Bld) [#/Vol] 7.80 10*3/uL Normal 3.70-11.00 [facility] Comment on above: Performed By: #### T SH, CMP, CBCDIF, LIPB, FT4, HBA1C #### [facility] Routine Lab [address] [place], [place] [address] Comp Metabolic Panelon 02-21 Albumin [Mass/Vol] 4.0 g/dL Normal 3.9-4.9 [facility] Comment on above: Performed By: #### T SH, CMP, CBCDIF, LIPB, FT4, HBA1C #### [facility] Routine Lab [address] [place], [place] [id number] ALP [Catalytic activity/Vol] 80 U/L Normal 34-123 [facility] Comment on above: Performed By: #### T SH, CMP, CBCDIF, LIPB, FT4, HBA1C #### [facility] Routine Lab [address] [place], [place] [address] ALT [Catalytic activity/Vol] 18 U/L Normal 7-38 [facility] Comment on above: Performed By: #### T SH, CMP, CBCDIF, LIPB, FT4, HBA1C #### [facility] Routine Lab [address] [place], [place] [address] Anion gap [Moles/Vol] 11 mmol/L Normal 9-18 [facility] Comment on above: Performed By: #### T SH, CMP, CBCDIF, LIPB, FT4, HBA1C #### [facility] Routine Lab [address] [place], [place] [address] AST [Catalytic activity/Vol] 27 U/L Normal 13-35 [facility] Comment on above: Performed By: #### T SH, CMP, CBCDIF, LIPB, FT4, HBA1C #### [facility] Routine Lab [address] [place], [place] [address] Bilirubin [Mass/Vol] 0.4 mg/dL Normal 0.2-1.3 [facility] Lab Comment on above: Performed By: #### T SH, CMP, CBCDIF, LIPB, FT4, HBA1C #### [facility] Routine Lab [address] [place], [place] [address] Calcium [Mass/Vol] 9.5 mg/dL Normal 8.5-10.2 [facility] Lab Comment on above: Performed By: #### T SH, CMP, CBCDIF, LIPB, FT4, HBA1C #### [facility] Routine Lab [address] [place], [place] [address] Chloride [Moles/Vol] 102 mmol/L Normal 97-105 [facility] Comment on above: Performed By: #### T SH, CMP, CBCDIF, LIPB, FT4, HBA1C #### [facility] Routine Lab [address] [place], [place] [address] CO2 [Moles/Vol] 21 mmol/L Low 22-30 [facility] Comment on above: Performed By: #### T SH, CMP, CBCDIF, LIPB, FT4, HBA1C #### [facility] Routine Lab [address] [place], [place] [address] Creatinine [Mass/Vol] 0.64 mg/dL Normal 0.58-0.96 [facility] Comment on above: Performed By: #### T SH, CMP, CBCDIF, LIPB, FT4, HBA1C #### [facility] Routine Lab [address] [place], [place] [address] eGFR- Amer. >60 Normal [facility] Lab Comment on above: Performed By: #### T SH, CMP, CBCDIF, LIPB, FT4, HBA1C #### [facility] Routine Lab [address] [place], [place] [address] eGFR-All Other Races >60 Normal [facility] Lab Comment on above: Performed By: #### T SH, CMP, CBCDIF, LIPB, FT4, HBA1C #### [facility] Routine Lab [address] [place], [place] [address] Glucose [Mass/Vol] 121 mg/dL High 74-99 [facility] Comment on above: Performed By: #### T SH, CMP, CBCDIF, LIPB, FT4, HBA1C #### [facility] Routine Lab [address] [place] [address] Potassium [Moles/Vol] 4.5 mmol/L Normal 3.7-5.1 [facility] Lab Comment on above: Performed By: #### T SH, CMP, CBCDIF, LIPB, FT4, HBA1C #### [facility] Routine Lab [address] [place] [address] Protein [Mass/Vol] 7.2 g/dL Normal 6.3-8.0 [facility] Lab Comment on above: Performed By: #### T SH, CMP, CBCDIF, LIPB, FT4, HBA1C #### [facility] Routine Lab [address] [place] [address] Sodium [Moles/Vol] 134 mmol/L Low 136-144 [facility] Comment on above: Performed By: #### T SH, CMP, CBCDIF, LIPB, FT4, HBA1C #### [facility] Routine Lab [address] [place] [address] Urea nitrogen [Mass/Vol] 11 mg/dL Normal 7-21 [facility] Lab Comment on above: Performed By: #### T SH, CMP, CBCDIF, LIPB, FT4, HBA1C #### [facility] Routine Lab [address] [place] [address] Free T4on 02-21-2021 Free T4 [Mass/Vol] 1.3 ng/dL Normal 0.9-1.7 [facility] Lab Comment on above: Performed By: #### T SH, CMP, CBCDIF, LIPB, FT4, HBA1C #### [facility] Routine [address] [place], [place] [address] Hemoglobin A1con 02-21-2021 Glucose [Mass/Vol] 160 mg/dL Normal [facility] Reference Lab Comment on above: Performed By: #### T SH, CMP, CBCDIF, LIPB, FT4, HBA1C #### [facility] Routine Lab [address] [place], [place] [address] HbA1c (Bld) [Mass fraction] 7.2 % High 4.3-5.6 [facility] Reference Lab Comment on above: Performed By: #### T SH, CMP, CBCDIF, LIPB, FT4, HBA1C #### [facility] Routine Lab [address] [place], [place] [address] Lipid Panel, Basicon 021 Cholesterol [Mass/Vol] 192 mg/dL Normal <200 [facility] Reference Lab Comment on above: Performed By: #### T SH, CMP, CBCDIF, LIPB, FT4, HBA1C #### [facility] Routine Lab [address] [place], [place] [address] Cholesterol in HDL [Mass/Vol] 67 mg/dL Normal >39 [facility] Reference Lab Comment on above: Performed By: #### T SH, CMP, CBCDIF, LIPB, FT4, HBA1C #### [facility] Routine Lab [address] [place], [place] [address] Cholesterol in LDL [Mass/Vol] 109 mg/dL High <100 [facility] Reference Lab Comment on above: Performed By: #### T SH, CMP, CBCDIF, LIPB, FT4, HBA1C #### [facility] Routine Lab [address] [place], [place] [address] Cholesterol in VLDL [Mass/Vol] 16 mg/dL Normal <30 [facility] Reference Lab Comment on above: Performed By: #### T SH, CMP, CBCDIF, LIPB, FT4, HBA1C #### [facility] Routine Lab [address] [place] [phone] Cholesterol non HDL [Mass/Vol] 125 mg/dL Normal <130 [facility] Reference Lab Comment on above: Performed By: #### T SH, CMP, CBCDIF, LIPB, FT4, HBA1C #### [facility] Routine Lab [address] [place] [phone] LDL:HDL Ratio 1.63 Normal <2.54 [facility] Reference Lab Comment on above: Performed By: #### T SH, CMP, CBCDIF, LIPB, FT4, HBA1C #### [facility] Routine Lab [address] [place] [phone] TC:HDL Ratio 2.87 Normal <5.10 [facility] Reference Lab Comment on above: Performed By: #### T SH, CMP, CBCDIF, LIPB, FT4, HBA1C #### [facility] Routine Lab [address] [place] [phone] Triglyceride [Mass/Vol] 79 mg/dL Normal <150 [facility] Reference Lab Comment on above: Performed By: #### T SH, CMP, CBCDIF, LIPB, FT4, HBA1C #### [facility] Routine Lab [address] [place] [address] Fasting Time UN Normal [facility] Reference Lab Comment on above: Performed By: #### T SH, CMP, CBCDIF, LIPB, FT4, HBA1C #### [facility] Routine Lab [address] [place] [address] TSHon 02-21-2021 TSH Qn 1.180 m[IU]/L Normal 0.270-4.200 [facility] Reference Lab Comment on above: Performed By: #### T SH, CMP, CBCDIF, LIPB, FT4, HBA1C #### [facility] Routine Lab [address] [place] [id number] Lab Report: Miscellaneous La b Procedureon 09-11-2017 [facility] LAB TEST . Invalid Interpretation Code [facility] Office Visit: osacr, josé miguelsandro izationon 09-05-2017 Documentation of current medications (procedure) Done Invalid Interpretation Code [facility] Fall risk assessment No Invalid Interpretation Code [facility] Tobacco smoking status NHIS Never Invalid Interpretation Code [facility] Tobacco use CPHS Never smoker Invalid Interpretation Code [facility] Office Visit: MMMon 03-01-20 Documentation of current medications (procedure) Done Invalid Interpretation Code [facility] Work Phone: Fall risk assessment No Invalid Interpretation Code [facility] Work Phone: Office Visiton 12-27-2016 Dietary management education, guidance, and counseling (procedure) yes Invalid Interpretation Code [facility] [employer] [facility] Work Phone: Documentation of current medications (procedure) Done Invalid Interpretation Code [facility] Work Phone: Replaced Document: Kae Alfredo CG Observationson 12-27-2016 EKG QRS axis -22 deg Invalid Interpretation Code [facility] electrocardiogram interpretation Sinus Rhythm -Left axis. ABNORMAL Invalid Interpretation Code [facility] [employer] Work Phone: GE use only - for [employer] import when terms are not otherwise specified 390 ms Invalid Interpretation Code [facility] [employer] Work Phone: Interpretation Sinus Rhythm -Left axis. ABNORMAL Invalid Interpretation Code [facility] P [place] 40 deg Invalid Interpretation Code [facility] P wave axis, electrocardiogram 40 deg Invalid Interpretation Code [facility] Work Phone: PA Interval 146 ms Invalid Interpretation Code [facility] PA interval, electrocardiogram 146 ms Invalid Interpretation Code [facility] Work Phone: Pulse (Heart Rate) 73 /min Invalid Interpretation Code [facility] Work Phone: QRS axis, electrocardiogram -22 deg Invalid Interpretation Code [facility] Work Phone: QRS Duration 104 ms Invalid Interpretation Code [facility] QRS duration, electrocardiogram 104 ms Invalid Interpretation Code [facility] Work Phone: QT Interval new path ms Invalid Interpretation Code [facility] QT interval, electrocardiogram new path ms Invalid Interpretation Code [employer] Work Phone: QTc Fuller 390 ms Invalid Interpretation Code [facility] T [place] -1 deg Invalid Interpretation Code [facility] T wave axis, electrocardiogram -1 deg Invalid Interpretation Code [employer] Work Phone: Clinical Lists Update: Pre hand fabric cutter 12-20-2016 Tobacco use CPHS Never smoker Invalid Interpretation Code [employer] Work Phone: Clinical Lists Update: Pre hand fabric cutter 09-07-2016 Alanine aminotransferase (ALT) 17 U/L Invalid Interpretation Code [employer] Work Phone: Alkaline phosphatase (ALP) 78 U/L Invalid Interpretation Code [employer] Work Phone: Aspartate aminotransferase (AST) 27 U/L Invalid Interpretation Code [employer] Work Phone: Bilirubin (total) 0.4 mg/dL Invalid Interpretation Code [employer] Work Phone: Calcium 9.6 mg/dL Invalid Interpretation Code [employer] Work Phone: Chloride 97 mmol/L Invalid Interpretation Code [employer] Work Phone: Cholesterol 197 mg/dL Invalid Interpretation Code [employer] Work Phone: CO2 23 mmol/L Invalid Interpretation Code [employer] Work Phone: Creatinine 0.70 mg/dL Invalid Interpretation Code [employer] Work Phone: Glucose 128 mg/dL Invalid Interpretation Code [employer] Work Phone: Glucose mass conc 128 mg/dL Invalid Interpretation Code [facility] HbA1c 6.3 % Invalid Interpretation Code [employer] Work Phone: HDL Cholesterol 76 mg/dL Invalid Interpretation Code [employer] Work Phone: Hematocrit (HCT) 43.0 % Invalid Interpretation Code [employer] Work Phone: Hemoglobin (HGB) 14.1 g/dL Invalid Interpretation Code [employer] Work Phone: LDL Cholesterol 98 mg/dL Invalid Interpretation Code [facility] Work Phone: Platelets 385 10*3/mm3 Invalid Interpretation Code [facility] Work Phone: Potassium 4.3 mmol/L Invalid Interpretation Code [facility] Work Phone: Protein 7.5 g/dL Invalid Interpretation Code [facility] Work Phone: Sodium 135 mmol/L Invalid Interpretation Code [facility] Work Phone: Thyroid stimulating hormone (TSH) 2.17 u[iU]/mL Invalid Interpretation Code [facility] Work Phone: Triglyceride 115 mg/dL Invalid Interpretation Code [facility] Work Phone: Urea nitrogen 11 mg/dL Invalid Interpretation Code [facility] Work Phone: WBC (Leukocytes) 10.9 10*3/uL Invalid Interpretation Code [facility] Work Phone: Office Visit: annual, [facility] 11-28-2013 Breast Mammogram screening Abnormal Right Invalid Interpretation Code [facility] Office Visit: annual, [facility] 10-28-2013 General categories [Interpretation] of Cervical or vaginal smear or scraping by Cyto stain Normal Invalid Interpretation Code [facility] Vital Signs Date Time Vital Sign Value Performing Clinician Mauri tellez 12-02-2024 10:22-0500 Body mass index (BMI) [Ratio] 52.7 kg/m2 Gabbie Robison NP-C Work Phone: [facility] 12-02-2024 10:22-0500 Body temperature 97.7 [degF] Gabbie Robison [employer] Work Phone: [facility] 12-02-2024 10:22-0500 Body weight 169.18 kg Gabbie Robison NP-C Work Phone: [facility] 12-02-2024 10:22-0500 Diastolic blood pressure 80 mm[Hg] Gabbie Robison [employer] Work Phone: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 alternate sectionGoals may be documented in an alternate sectionGoals may be documented in an alternate sectionGoals may be documented in an alternate section Care Teams (unrecognized sec tion and content) Team Status: Active Member Role Status Dates [facility] Family Provider Active [facility] Primary Care Provider A ctive Team Status: Inactive Member Role Status Dates [facility] Primary Care Provider, Referring Provider Active Dr. Autumn Cano MD Attending Provider Active Team Status: Active Member Role Status Dates [facility] Primary Care Provider, Referring Provider Active Dr. Autumn Cano MD Attending Provider, Other Pro vider Active Team Status: Inactive Member Role Status Dates [facility] Primary Care Provider, Referring Provider Active Gabbie Robison RUBBER DOWN, RUBBER DOWN-C Attending Provider Active Team Status: Active Member Role Status Dates [facility] Family Provider Active Gabbie Robison VSC, RUBBER DOWN-C Primary Care Provider Activ e Team Status: Inactive Member Role Status Dates Gabbie Robison VSC, RUBBER DOWN-C Primary Care Provider, Attending Provider, Referring Provider Active Team Status: Active Member Role Status Dates Gabbie Robison VSC, RUBBER DOWN-C Primary Care Provider Activ e Team Status: Inactive Member Role Status Dates Gabbie Robison VSC, RUBBER DOWN-C Primary Care Provider Activ e Start: December 02, 2024 End: December 02, 2024 Gabbie Robison VSC, RUBBER DOWN-C Referring Provider Active Start: December 02, 2024 End: December 02, 2024 Nallely Constantino NP-C Attending Provider Active Start: December 02, 2024 End: December 02, 2024 Team Status: Inactive Member Role Status Dates Gabbie Robison VSC, RUBBER DOWN-C Primary Care Provider Activ e Start: March 24, 2025 End: March 24, 2025 Marilyn Shafer VSC, DO Attending Provider Active Start: March 24, 2025 End: March 24, 2025 FOR RECORDS PERTAINING TO PATIENTS WHO ARE OR HAVE BEEN ENROLLED IN A CHEMICAL DEPENDENCY/SUBSTANCEABUSE PROGRAM, SOME INFORMATION MAY BE OMITTED. This clinical summary was aggregated from multiple sources. Caution should be exercised in using it in the provision of clinical care. This summary normalizes information from multiple sources, and as a consequence, information in this document may materially change the coding, format and clinical context of patient data. In addition, data may be omitted in some cases. CLINICAL DECISIONS SHOULD BE BASED ON THE PRIMARY CLINICAL RECORDS. [employer] provides no warranty or guarantee of the accuracy or completeness of information in this document.
== END | disposition home or self-care (01) ==
LOC: OPBI 15:00
PROVIDERS: PCP Nurse Practitioner Family; Referring Provider Nurse Practitioner Family; Visit Provider Nurse Practitioner Family
DX: Z12.31 Encounter for screening mammogram for malignant neoplasm of breast (principal)
CPT/HCPCS: 77063; 77067

== ENCOUNTER → 2025-10-26 | Outpatient (CLI) | payer MEDICAID, SELFPAY ==
[2025-10-26 16:41] LABS: Hematocrit 42.8 % (37-47); Hemoglobin 14.3 g/dL (12.0-15.0); Immature Granulocytes Count 0.050 X10^3/uL (0.0-0.0); Mean Corp Hgb Conc 33.4 g/dL (32-36); Mean Corpuscular Volume 92.8 fL (81-99); Mean Platelet Vol. 9.1 fl (6.2-12.0); NRBC Flagged by Analyzer 0 % (0-5); Platelet Count 386 K/mm3 (150-450); RBC Distribution Width CV 13.8 % (11.6-14.6); RBC Distribution Width SD 47.1 fl (35.1-43.9); Red Blood Count 4.61 M/mm3 (4.2-5.4); White Blood Count 10.7 K/mm3 (4.4-11.0)
[2025-10-26 18:01] LABS: AST(SGOT) 22 U/L (<=31); Alanine Aminotransfer ALT/SGPT 28 U/L (<=34); Albumin, Serum 4.0 g/dL (3.5-5.0); Alkaline Phosphatase 66 U/L (35-104); Anion Gap 13 (7-18); BUN 13 mg/dL (4-19); BUN/Creat Ratio 15.8 RATIO (10-20); Calcium,Total 10.0 mg/dL (7.6-11.0); Carbon Dioxide 21.3 mmol/L (20.0-29.0); Chloride 101 mmol/L (96-106); Cholesterol 266 mg/dL (<=200); Ferritin 92 ng/mL (22-378); Globulin 3.2 g/dL (2.2-4.2); Glucose 193 mg/dL (70-99); Low Density Lipoprotein Calc. 151 mg/dL; Potassium 4.6 mmol/L (3.5-5.1); Triglycerides 339 mg/dL; Very Low Density Lipoprotein 68 mg/dL (5-40); Vitamin B12 473 pg/mL (180-914); Vitamin D,25 Hydroxy 57.5 ng/mL (30-100); cholesterol:hdl ratio screen 5.11
[2025-10-26 18:44] LABS: Iron 67 ug/dL (50-170); Iron Binding Capacity,Total 328 ug/dL (250-450); Iron Binding Capacity,Unsat 261 ug/dL (228-428)
== END | disposition home or self-care (01) ==
LOC: VSLAB 11:53
PROVIDERS: PCP Nurse Practitioner Family; Referring Provider Nurse Practitioner Family; Visit Provider Nurse Practitioner Family
DX: E11.8 Type 2 diabetes mellitus with unspecified complications (principal); E03.9 Hypothyroidism, unspecified; E55.9 Vitamin D deficiency, unspecified; R53.83 Other fatigue; Z86.718 Personal history of other venous thrombosis and embolism
CPT/HCPCS: 36415; 80053; 80061; 82306; 82607; 82728; 83036; 83540; 83550; 84439; 84443; 85025